=== PATIENT | male | born 1955 | race Caucasian/White ===

== ENCOUNTER → 2021-03-30 | Outpatient (CLI) | payer OTHER | LOC: LABNPT 06:33 | PROVIDERS: ATTEND Family Medicine | DX: R50.9 Fever, unspecified (principal); M79.10 Myalgia, unspecified site; Z20.822 Contact with and (suspected) exposure to COVID-19 | CPT/HCPCS: 87635 ==

== ENCOUNTER 2021-04-01 14:54 | Emergency (ER) | payer OTHER ==
[~2021-04-01] VITALS: Ht 177 cm; Wt 75.0 kg
[2021-04-01 15:19] LABS: BASOPHILS # (AUTO) 0.1 10^3/uL (0.0-0.1); BASOPHILS % (AUTO) 1 % (0-10); EOSINOPHILS # (AUTO) 0.2 10^3/uL (0.0-0.3); EOSINOPHILS % (AUTO) 2 % (0-10); HEMATOCRIT 40 % (40-54); HEMOGLOBIN 14.3 g/dL (13.3-17.7); LYMPHOCYTES # (AUTO) 2.2 10^3/uL (1.0-4.0); LYMPHOCYTES % (AUTO) 23 % (12-44); MEAN CORPUSCULAR HEMOGLOBIN 34 pg (25-34); MEAN CORPUSCULAR HGB CONC 36 g/dL (32-36); MEAN CORPUSCULAR VOLUME 94 fL (80-99); MONOCYTES # (AUTO) 0.8 10^3/uL (0.0-1.0); MONOCYTES % (AUTO) 8 % (0-12); NEUTROPHILS # (AUTO) 6.6 10^3/uL (1.8-7.8); NEUTROPHILS % (AUTO) 67 % (42-75); PLATELET COUNT 207 10^3/uL (130-400); WHITE BLOOD COUNT 9.9 10^3/uL (4.3-11.0)
--- NOTE | 2021-04-01 15:20 | ED Neurological Problem ---
General Stated Complaint: LOST VISION IN EYE Source: patient Exam Limitations: no limitations History of Present Illness Date Seen by Provider: Apr 01, 2021 Time Seen by Provider: 15:05 Initial Comments This is a 65-year-old male who presents to the ER with complaints of sudden onset right eye vision loss. States that he was mowing his yard when he began to see black spots that blurred together and became complete darkness. States that he has since had return of his vision with no lingering spots. No pain in his eye, blurred vision, or double vision. Spouse states this happened once earlier this week and his vision returned as well. At this time he has no complaints. Denies any recent illness, fever, chills, cough, shortness of b reath,chest pain, nausea/vomiting/diarrhea. Had COVID test Saturday, which was neg. Allergies and Home Medications Allergies Coded Allergies: No Known Drug Allergies (Unverified , 04/01/21) Patient Home Medication List Home Medication List Reviewed: Yes Review of Systems Review of Systems Constitutional: no symptoms reported Eyes: See HPI Ears, Nose, Mouth, Throat: no symptoms reported Respiratory: no symptoms reported Cardiovascular: no symptoms reported Gastrointestinal: no symptoms reported Genitourinary: no symptoms reported Musculoskeletal: no symptoms reported Skin: no symptoms reported Psychiatric/Neurological: No Symptoms Reported Endocrine: No Symptoms Reported Hematologic/Lymphatic: No Symptoms Reported Physical Exam Vital Signs Vital Signs - First Documented 04/01/21 14:58 Temp 36.7 Pulse 72 Resp 18 B/P (MAP) 115/72 (86) Pulse Ox 98 O2 Delivery Room Air Capillary Refill : Height, Weight, BMI Height: '" Weight: lbs. oz. 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, no motor/sensory deficits, alert, normal mood/affect, oriented x 3; No abnormal gait, No motor weakness, No sensory deficit Crainal Nerves: normal hearing, normal speech, PERRL; No facial asymmetry, No facial droop, No facial paresthesias, No facial weakness, No gaze palsy Coordination/Gait: normal finger to nose, normal gait Motor/Sensory: no motor deficit, no sensory deficit, no pronator drift Skin: normal color, warm/dry Stroke Onset of Symptoms Onset of Symptoms: Yes NIH Stroke Scale Assessment Select: Initial Level of Consciousness: 0=Alert (0), Level of Consciousness- Questions: 0=Answers both month/age (0), Gaze: Normal (0), Visual Hull: 0=No visual loss (0), Facial Movement (Facial Paresis): 0=Normal symmetrical mnt (0), Motor Function-Arms Right: 0=No drift (0), Motor Function-Arms Left: 0=No drift (0), Motor Function-Legs Right: 0=No drift (0), Motor Function- Legs Left: 0=No drift (0), Limb Ataxia: 0=Absent (0), Sensory: 0=Normal:no loss (0), Best Language: 0=No aphasia (0), Dysarthria: 0=Normal (0), Extinction & Inattention: 0=No abnormality (0), Total: 0 Progress/Results/Core Measures Results/Orders Lab Results Laboratory Tests Test 04/01/21 15:06 04/01/21 15:12 Range/Units White Blood Count 9.9 4.3-11.0 10^3/uL Red Blood Count 4.21 L 4.30-5.52 10^6/uL Hemoglobin 14.3 13.3-17.7 g/dL Hematocrit 40 40-54 % Mean Corpuscular Volume 94 80-99 fL Mean Corpuscular Hemoglobin 34 25-34 pg Mean Corpuscular Hemoglobin Concent 36 32-36 g/dL Red Cell Distribution Width 11.9 10.0-14.5 % Platelet Count 207 130-400 10^3/uL Mean Platelet Volume 11.0 9.0-12.2 fL Immature Granulocyte % (Auto) 1 % Neutrophils (%) (Auto) 67 42-75 % Lymphocytes (%) (Auto) 23 12-44 % Monocytes (%) (Auto) 8 0-12 % Eosinophils (%) (Auto) 2 0-10 % Basophils (%) (Auto) 1 0-10 % Neutrophils # (Auto) 6.6 1.8-7.8 10^3/uL Lymphocytes # (Auto) 2.2 1.0-4.0 10^3/uL Monocytes # (Auto) 0.8 0.0-1.0 10^3/uL Eosinophils # (Auto) 0.2 0.0-0.3 10^3/uL Basophils # (Auto) 0.1 0.0-0.1 10^3/uL Immature Granulocyte # (Auto) 0.1 0.0-0.1 10^3/uL Prothrombin Time 13.5 12.2-14.7 SEC INR Comment 1.0 0.8-1.4 Activated Partial Thromboplast Time 32 24-35 SEC D-Dimer 2.62 H 0.00-0.49 UG/ML Sodium Level 135 135-145 MMOL/L Potassium Level 4.1 3.6-5.0 MMOL/L Chloride Level 101 98-107 MMOL/L Carbon Dioxide Level 18 L 21-32 MMOL/L Anion Gap 16 H 5-14 MMOL/L Blood Urea Nitrogen 15 7-18 MG/DL Creatinine 0.80 0.60-1.30 MG/DL Estimat Glomerular Filtration Rate 96 BUN/Creatinine Ratio 19 Glucose Level 94 70-105 MG/DL Calcium Level 9.0 8.5-10.1 MG/DL Corrected Calcium 9.2 8.5-10.1 MG/DL Total Bilirubin 0.6 0.1-1.0 MG/DL Aspartate Amino Transf (AST/SGOT) 25 5-34 U/L Alanine Aminotransferase (ALT/SGPT) 26 0-55 U/L Alkaline Phosphatase 66 40-136 U/L Troponin I < 0.028 <0.028 NG/ML Total Protein 6.6 6.4-8.2 GM/DL Albumin 3.8 3.2-4.5 GM/DL Glucometer 99 70-110 MG/DL My Orders Orders - BEV TRAN PROGRAM CONSULTANT Cbc With Automated Diff (04/01/21 14:56) Protime With Inr (04/01/21 14:56) Partial Thromboplastin Time (04/01/21 14:56) Comprehensive Metabolic Panel (04/01/21 14:56) Fibrin Degradation Products (04/01/21 14:56) Troponin I (04/01/21 14:56) Chest 1 View, Ap/Pa Only (04/01/21 14:56) Ekg Tracing (04/01/21 14:56) Accucheck Stat ONCE (04/01/21 14:56) Ed Iv/Invasive Line Start (04/01/21 14:56) Ed Iv/Invasive Line Start (04/01/21 14:56) Vital Signs Stroke Patient Q15M (04/01/21 14:56) Ct Head Wo-R/O Stroke (04/01/21 14:56) O2 (04/01/21 14:56) Intake & Output 06,14,22 (04/01/21 14:56) Monitor-Rhythm Ecg Trace Only (04/01/21 14:56) Dysphagia Screening Tool (04/01/21 14:56) Post Thrombolytic Adminstratio (04/01/21 14:56) Tetracaine 0.5% Ophth Margarita Sdv (Tetracai (04/01/21 16:00) Ct Angio Head/Neck (04/01/21 16:29) Iohexol Injection (Omnipaque 350 Mg/Ml 1 (04/01/21 16:45) Received Contrast (Hold Metformin- Contr (04/01/21 16:45) Ns (Ivpb) (Sodium Chloride 0.9% Ivpb Bag (04/01/21 16:45) Aspirin Tablet (Aspirin Tablet) (04/01/21 16:45) Aspirin Tablet (Aspirin Tablet) (04/01/21 16:39) Medications Given in ED Vital Signs/I&O 04/01/21 04/01/21 14:58 17:56 Temp 36.7 Pulse 72 65 Resp 18 16 B/P (MAP) 115/72 (86) 123/77 Pulse Ox 98 98 O2 Delivery Room Air Room Air Progress Progress Note #1: Progress Note Patient examined and in no acute distress. Symptoms consistent with TIA. Initiated stroke workup. Has no complaints at this time. Has no focal or gross neurological deficits. Progress Note #2: Progress Note Labs reviewed and are unremarkable other than elevated D-dimer. CT head neg for acute pathology. Will give full strength ASA. Checked ocular pressures right19, left17.Discussed case with Dr. Lentz with ophthalmology, agrees that symptoms of transient vision loss is likely due to intermittent occlusion, recommended continued medical treatment. Progress Note #3: Time: 16:23 Progress Note Discussed case with [facility] neurology, recommended obtaining head/neck CTA and having patient transfer for further stroke workup pending results. If CTA neg for high grade stenosis or occlusion patient will still require additional workup including MRI. Progress Note #4: Progress Note CT angio head and neck negative for high-grade stenosis, occlusion, acute pathology. Discussed findings with patient they declined transfer at this time stating they would like to continue work-up outpatient. Called Dr. CHANG as this is his primary care provider and she is agreeable with continuing work-up outpatient. Patient is to call her office first thing Saturday. Reviewed discharge plan of care with patient and he is agreeable with plan. Diagnostic Imaging Diagonstic Imaging: Xray Plain Films/CT/US/NM/MRI: chest Comments [facility], [place] NAME: KAMILA PENA [facility] REC#: [id number] PT STATUS: REG ER : 1955 PHYSICIAN: BEV TRAN APRN ADMIT DATE: 04/01/21/ER Signed Date of Exam:04/01/21 CHEST 1 VIEW, AP/PA ONLY EXAMINATION: Chest 1 view. HISTORY: Stroke protocol. COMPARISON: None available. FINDINGS: The lungs are clear without edema or pneumonia. No pleural effusion or pneumothorax. Heart size is normal. IMPRESSION: Clear lungs. Dictated by: Dictated on workstation # [id number] Dict: 04/01/21 1530 Trans: 04/01/21 1631 [facility] [id number] Interpreted by: JANN WALDEN MD Electronically signed by: JANN WALDEN MD 04/01/21 163 Reviewed: Reviewed by Me Departure Impression Primary Impression: Transient visual loss, right eye Disposition: 01 HOME, SELF-CARE Condition: Improved Departure-Patient Inst. Decision time for Depature: 17:35 Patient Instructions: Transient Ischemic Attack (DC) Add. Discharge Instructions: Plan: 1. Take a full strength aspirin daily. 2. Call Dr. Chang's office on Saturday to schedule additional workup. 3. Return for any new, concerning, or worsening symptoms. Copy Copies To 1: KRIS CHANG STORMY D PROGRAM CONSULTANT Apr 01, 2021 15:20
[2021-04-01 15:31] LABS: ALBUMIN 3.8 GM/DL (3.2-4.5); CHLORIDE 101 MMOL/L (98-107); POTASSIUM 4.1 MMOL/L (3.6-5.0); SODIUM 135 MMOL/L (135-145)
[2021-04-01 15:33] LABS: GLUCOSE 94 MG/DL (70-105)
--- NOTE | 2021-04-01 15:33 | Diagnostic Imaging Report ---
EXAMINATION: Chest 1 view. HISTORY: Stroke protocol. COMPARISON: None available. FINDINGS: The lungs are clear without edema or pneumonia. No pleural effusion or pneumothorax. Heart size is normal. IMPRESSION: Clear lungs. Dictated by: Dictated on workstation # [id number]
[2021-04-01 15:34] LABS: TOTAL PROTEIN 6.6 GM/DL (6.4-8.2)
[2021-04-01 15:35] LABS: BILIRUBIN,TOTAL 0.6 MG/DL (0.1-1.0); CARBON DIOXIDE 18 MMOL/L (21-32); FIBRIN DEGRADATION PRODUCTS 2.62 UG/ML (0.00-0.49); PROTHROMBIN TIME PATIENT 13.5 SEC (12.2-14.7)
[2021-04-01 15:37] LABS: ALKALINE PHOSPHATASE 66 U/L (40-136); GFR ESTIMATED 96
[2021-04-01 15:38] LABS: BUN/CREATININE RATIO 19
[2021-04-01 15:40] LABS: ALANINE AMINOTRANSFERASE 26 U/L (0-55)
--- NOTE | 2021-04-01 15:41 | Diagnostic Imaging Report ---
PROCEDURE: CT head w/o r/o stroke. TECHNIQUE: Multiple contiguous axial images were obtained through the brain without the use of intravenous contrast. Auto Exposure Controls were utilized during the CT exam to meet ALARA standards for radiation dose reduction. INDICATION: Stroke and loss of vision in the right eye. COMPARISON: No prior study is available for comparison. FINDINGS: Ventricles and sulci are within normal limits. No sulcal effacement or midline shift is identified. There is an area of hyperdensity in the right frontal lobe cortex and subcortical white matter. This has the appearance of calcification and hemorrhage would be unlikely. No area of acute intracranial hemorrhage is identified. Cisterns are patent. The visualized paranasal sinuses are clear. IMPRESSION: There appears to be calcification in the right frontal lobe. No acute intracranial hemorrhage is detected. Dictated by: Dictated on workstation # [id number]
[2021-04-01] MEDS ORDERED: TETRACAINE 0.5% OPHTH SOLN 4 ML BTL (SINGLE DOSE ONLY) OU ONE (16:00)
[2021-04-01] MEDS ORDERED: ASPIRIN 325 MG (5 GR) TABLET ONE (16:39)
[2021-04-01] MEDS ORDERED: HOLD METFORMIN - RECEIVED CONTRAST 20 ML VIAL IV SCH (16:45)
[2021-04-01] MEDS ORDERED: IOHEXOL 350 MG/ML 100 ML (OMNIPAQUE 350) VIAL IV ONE (16:45)
[2021-04-01] MEDS ORDERED: NS 100 ML (IVPB) BAG IV ONE (16:45)
[2021-04-01] MEDS ORDERED: ASPIRIN 325 MG (5 GR) TABLET PO ONE (16:45)
--- NOTE | 2021-04-01 17:13 | Diagnostic Imaging Report ---
PROCEDURE: CT angiography of the head and CT angiography of the neck with and without contrast. TECHNIQUE: Contiguous noncontrast images were obtained from the skull base through the vertex. After intravenous contrast administration, helical CT angiography of the neck was performed. Source data was reformatted into 3D MIP projections. Delayed post contrast acquisition was also obtained. Auto Exposure Controls were utilized during the CT exam to meet ALARA standards for radiation dose reduction. INDICATION: STROKE, vision loss. COMPARISON: Imaging from the same date. FINDINGS: Age-appropriate volume loss. Calcifications and hyperdensity are identified within the right frontal lobe. No midline shift, herniation, hydrocephalus or extra-axial fluid collection. No definite intracranial hemorrhage, though evaluation is limited secondary to presence of intravenous contrast. No definite CT evidence of an acute ischemic infarction. The orbits are unremarkable. The paranasal sinuses are clear. The calvarium and extracalvarial soft tissues are unremarkable. Periventricular fat is symmetric. Muscles of mastication are unremarkable. The salivary glands are unremarkable. No significant adenopathy. The airway is patent. Epiglottis and aryepiglottic folds are unremarkable. Thyroid gland is unremarkable. No apical pneumothorax. A three-vessel aortic arch is present. The large arterial structures within the head and neck are unremarkable. Large dural venous sinuses appear patent. Scattered osseous degenerative changes without acute osseous abnormality. IMPRESSION: 1. Large arterial structures within the head and neck are unremarkable without evidence of obstruction, high-grade stenosis, dissection, aneurysm or pseudoaneurysm. 2. Persistent calcifications within the right frontal lobe without acute intracranial abnormality. Dictated by: Dictated on workstation # [id number]
[2021-04-01 17:56] VITALS: BP 123/77
--- OUTSIDE RECORDS SUMMARY | 2021-04-05 13:18 | XMS REPORT | CCD ---
Author Author Nayan Chang D.O. Organization [facility] Address [address] [place] [id number] Phone Care Team Providers Care Medical Claims Examiner Name Role Phone Kris Chang D.O., PP Unavailable CCM Unavailable Summary Purpose Interface Exchange Insurance Providers Payer name Policy type / Coverage type Covered libertarian ID Effective Begin Date Effective End Date ABS FOR [employer] Commercial Insurance [id number] Unknown Family History Family History data not found Social History Social History Element Codes Description Effective Dates Tobacco history SNOMED CT: 628316354 Nonsmoker 05/09/2011 Allergies, Adverse Reactions, Alerts Substance Reaction Codes Entered Date Inactivated Date Status * NO KNOWN ENVIRONMENTAL ALLERGIES Unknown 03/01/2010 N o Inactive Date Active _ Unknown 03/01/2010 No Inactive Date Active * NO KNOWN FOOD ALLERGIES Unknown 03/01/2010 No Inactiv e Date Active Problems Condition Codes Effective Dates Condition Status Bitten or stung by nonvenomous insect an d other nonvenomous arthropods, initial encounter ICD-10: W57.XXXA 03/08/2021 Active Fever, unspecified fever cause ICD-10: R50.9 ICD-9: 780.60 03/08/2021 Active Malaise ICD-10: R53.81 ICD-9: 780.79 03/08/2021 Active Multiple joint pain ICD-10: M25.50 ICD-9: 719.49 03/08/2021 Active Tick bite of left lower leg, initial encounter ICD-10: S80.862A ICD-9: 916.4 03/08/2021 Active Essential (primary) hypertension ICD-10: I10 ICD-9: 401.9 03/25/2014 Active PNEUMOCOCCAL VACCINE ICD-10: Z23 ICD-9: V03.82 04/06/2019 Active Encounter for general adult medical examination withou t abnormal findings ICD- 10: Z00.00 ICD-9: V70.9 03/31/2018 Active Encounter for general adult medical examination withou t abnormal findings ICD- 10: Z00.00 ICD-9: V70.0 03/25/2014 Active HYPERTENSION ICD-9: 401.9 03/25/2014 Active ROUTINE MEDICAL EXAM ICD-9: V70.0 03/25/2014 Active Hypertension Unknown 05/09/2011 Active Medications Medication Codes Instructions Start Date Stop Date Status Fill Instructions doxycycline hyclate 100 mg capsule RxNorm: 1967210 1 Cap jalen(s) Oral two times a day 03/14/2021 03/20/2021 Active doxycycline hyclate 100 mg capsule RxNorm: 5532493 1 Cap jalen(s) Oral two times a day 03/13/2021 03/13/2021 Inactive doxycycline hyclate 100 mg capsule RxNorm: 1693163 1 Cap jalen(s) Oral two times a day 03/13/2021 03/13/2021 Inactive lisinopril 40 mg tablet RxNorm: 860282 TAKE 1 TABLET BY MOUTH ONCE DAILY Tablet(s) Oral 01/27/2021 04/26/2021 Active lisinopril 40 mg tablet RxNorm: 332989 TAKE 1 TABLET BY MOUTH ONCE DAILY Tablet(s) Oral 04/07/2020 04/07/2020 Inactive lisinopril 40 mg tablet RxNorm: 967185 TAKE 1 TABLET BY MOUTH O NCE DAILY 10/23/2019 04/06/2020 Inactive lisinopril 40 mg tablet RxNorm: 706788 1 Tablet(s) PO QD 04/06/2019 0 10/02/2019 Inactive lisinopril 40 mg tablet RxNorm: 662910 1 Tablet(s) PO QD 10/30/2018 0 10/22/2019 Inactive lisinopril 40 mg tablet RxNorm: 018455 1 Tablet(s) PO QD 03/31/2018 0 09/25/2018 Inactive lisinopril 40 mg tablet RxNorm: 191550 1 Tablet(s) PO QD 03/27/2018 0 03/30/2018 Inactive lisinopril 40 mg tablet RxNorm: 060459 1 Tablet(s) PO QD 04/01/2017 0 03/31/2017 Inactive lisinopril 40 mg tablet RxNorm: 394115 1 Tablet(s) PO QD 04/01/2017 0 03/27/2018 Inactive lisinopril 40 mg tablet RxNorm: 869685 1 Tablet(s) PO QD 03/08/2016 0 04/01/2017 Inactive lisinopril 20 mg tablet RxNorm: 014276 Tablet(s) TAKE O NE TABLET BY MOUTH TWICE DAILY, NEED APPT AND LABS 02/16/2016 03/30/2018 Inactive lisinopril 20 mg tablet RxNorm: 319185 TAKE ONE TABLET BY MOUTH TWICE DAILY, NEED APPT AND LABS 10/17/2015 12/15/2015 Inactive lisinopril 40 mg tablet RxNorm: 956757 1 Tablet(s) PO QD 04/25/2015 0 02/16/2016 Inactive lisinopril 20 mg tablet RxNorm: 059436 1 Tablet(s) PO BID -need appt and labs 03/21/2015 10/17/2015 Inactive [AttnRPh: Saving yvrose ly/adjudicate RxGRP:SG20 RxBIN:[id number] RxPCN: ID#:[id number]] lisinopril 20 mg tablet RxNorm: 024949 1 Tablet(s) PO BID 03/29/2014 03/21/2015 Inactive [AttnRPh: Saving apply/adjudicate RxGRP: SG20 RxBIN:[id number] RxPCN: ID#:[id number]] lisinopril 20 mg tablet RxNorm: 755314 1 Tablet(s) PO BID 03/09/2014 03/22/2014 Inactive [AttnRPh: Saving apply/adjudicate RxGRP: SG20 RxBIN:[id number] RxPCN: ID#:[id number]] lisinopril 20 mg tablet RxNorm: 198209 Tablet(s) PO LEANNA E ONE TABLET BY MOUTH TWICE DAILY 06/05/2013 03/08/2014 Inactive lisinopril 20 mg tablet RxNorm: 070841 1 Tablet(s) PO BID 06/02/2012 05/27/2013 Inactive Due for labs and yearly check-up before further refills lisinopril 20 mg tablet RxNorm: 348625 1 Tablet(s) PO BID 05/09/2011 08/06/2011 Inactive Due for labs and yearly check-up before further refills lisinopril 20 mg Tab RxNorm: 439924 1 Tablet(s) PO BID 04/11/201101/2011 Inactive Due for labs and yearly check-up before further refills lisinopril 20 mg Tab RxNorm: 555801 1 Tablet(s) PO BID Due for yearly check-up in January 2011 01/08/2011 05/09/2011 Inactive Lisinopril 20 mg Tab RxNorm: 070138 1 Tablet(s) PO QD 05/26/201003/2011 Inactive Lisinopril 20 mg Tab RxNorm: 330499 1 Tablet(s) PO QD 05/04/201005/04 Inactive Lisinopril 20 mg Tab RxNorm: 785781 1 Tablet(s) PO QD 03/01/201004/03 Inactive Multivitamin & Mineral Formula Tab RxNorm: 1 Tablet(s) PO QD 03/01 Active Aspirin 81 mg Tab RxNorm: 451864 1 Tablet(s) PO QD 03/01/2010 Active Medication Administered No Medication Administered data Immunizations Vaccine Codes Date Status Influenza CVX: 141 07/19/2020 Pneumococcal CVX: 33 04/07/2020 Complete Influenza HD CVX: 135 10/17/2019 Pneumococcal CVX: 133 04/06/2019 Complete Results Observation Observation Code Item Item Code Result Date S [facility] Location COMPLETE BLOOD COUNT [id number] WBC 9.6 10e9/L 04/22/20 20 Unknown COMPLETE BLOOD COUNT [id number] RBC 4.64 10e12/L 2019 Unknown COMPLETE BLOOD COUNT [id number] HEMOGLOBIN 15.9 g/dL 04/22/20 20 Unknown COMPLETE BLOOD COUNT [id number] HEMATOCRIT 44.0 % 04/22/20 20 Unknown COMPLETE BLOOD COUNT [id number] MCV 94.8 fL 0 Unknown COMPLETE BLOOD COUNT [id number] MCH 34.3 pg 0 Unknown COMPLETE BLOOD COUNT [id number] MCHC 36.1 g/dL 0 Unknown COMPLETE BLOOD COUNT [id number] PLATELET COUNT 179 10e9/L Unknown COMPLETE BLOOD COUNT [id number] Mean Plt Volume 12.2 fL Unknown COMPLETE BLOOD COUNT 3035016 Neut Auto 69.2 % 0 Unknown COMPLETE BLOOD COUNT [id number] Lymph Auto 20.7 % 04/22/20 20 Unknown COMPLETE BLOOD COUNT [id number] Marion Auto 8.7 % 0 Unknown COMPLETE BLOOD COUNT [id number] RDW 12.6 % 0 Unknown COMPLETE BLOOD COUNT 1544147 Eos Auto 1.1 % 0 Unknown COMPLETE BLOOD COUNT 0630445 Baso Auto 0.3 % 0 Unknown COMPLETE BLOOD COUNT [id number] Neutrophil Abs 6.64 10e9/L Unknown COMPLETE BLOOD COUNT [id number] Lymphocyte Abs 1.99 10e9/L Unknown COMPLETE BLOOD COUNT [id number] Monocyte Abs 0.84 10e9/L 04/03 Unknown COMPLETE BLOOD COUNT [id number] Eosinophil Abs 0.11 10e9/L Unknown COMPLETE BLOOD COUNT [id number] RDW-SD 42.5 fL 0 Unknown COMPLETE BLOOD COUNT [id number] Basophil Abs 0.03 10e9/L 04/03 Unknown Procedures Procedure Codes Date ROUTINE VENIPUNCTURE CPT-4: 13156 04/22/2020 COMPLETE CBC W/AUTO DIFF WBC CPT-4: 31433 04/22/2020 PNEUMOCOCCAL VACC 23 RENITA IM CPT-4: 47895 04/07/2020 IMMUNIZATION ADMIN CPT-4: 85973 04/07/2020 PNEUMOCOCCAL VACC 13 RENITA IM CPT-4: 62064 04/06/2019 IMMUNIZATION ADMIN CPT-4: 03302 04/06/2019 Vital Signs Date Vital 03/08/2021 Blood Pressure 1: 127/82 Code: 8480-6 BMI: 24.1 Code: 87852-2 Heart Rate 1: 70 bpm Height: 5'11" Code: 8302-2 Respiratory Rate: 16 bpm SpO2: 97% Temperature: 36.3 (C) / 97.3 (F) Weight: 173 lbs Code: 80625-1 04/22/2020 Blood Pressure 1: 139/82 Code: 8480-6 Heart Rate 1: 63 bpm SpO2: 99% 04/07/2020 Blood Pressure 1: 140/85 Code: 8480-6 Heart Rate 1: 75 bpm Respiratory Rate: 20 bpm SpO2: 98% Temperature: 36.7 (C) / 98.0 (F) We ight: 179 lbs Code: 94788-3 04/06/2019 Blood Pressure 1: 136/82 Code: 8480-6 Heart Rate 1: 62 bpm SpO2: 96% Temperature: 36.3 (C) / 97.4 (F) Weight: 181 lbs Code: 43571-8 03/31/2018 Blood Pressure 1: 116/64 Code: 8480-6 BMI: 26.0 Code: 67305-4 Heart Rate 1: 62 bpm Height: 5'10" Code: 8302-2 Respiratory Rate: 22 bpm SpO2: 96% Temperature: 36.8 (C) / 98.2 (F) Weight: 181 lbs Code: 09027-5 03/08/2016 Blood Pressure 1: 142/84 Code: 8480-6 BMI: 26.5 Code: 96567-4 Heart Rate 1: 54 bpm Height: 5'10" Code: 8302-2 Respiratory Rate: 22 bpm SpO2: 97% Temperature: 36.7 (C) / 98.1 (F) Weight: 185 lbs Code: 85565-9 04/25/2015 Blood Pressure 1: 128/70 Code: 8480-6 BMI: 26.0 Code: 82646-9 Heart Rate 1: 78 bpm Height: 5'10" Code: 8302-2 Respiratory Rate: 22 bpm Temperat ure: 36.4 (C) / 97.6 (F) Weight: 181 lbs Code: 36761-1 03/25/2014 Blood Pressure 1: 120/78 Code: 8480-6 BMI: 26.1 Code: 08338-8 Heart Rate 1: 64 bpm Height: 5'10" Code: 8302-2 Respiratory Rate: 20 bpm Temperat ure: 36.6 (C) / 97.9 (F) Weight: 182 lbs Code: 36901-2 06/05/2012 Blood Pressure 1: 116/78 Code: 8480-6 BMI: 25.5 Code: 45702-0 Heart Rate 1: 60 bpm Height: 5'10" Code: 8302-2 Respiratory Rate: 20 bpm Temperat ure: 36.9 (C) / 98.4 (F) Weight: 178 lbs Code: 59381-5 05/09/2011 Blood Pressure 1: 120/70 Code: 8480-6 BMI: 25.8 Code: 87834-3 Heart Rate 1: 54 bpm Height: 5'10" Code: 8302-2 Temperature: 36.3 (C) / 97.3 (F) Weight: 180 lbs Code: 05390-9 05/26/2010 Blood Pressure 1: 135/88 Code: 8480-6 Bl ood Pressure 2: 135/80 Code: 8480-6 03/21/2010 Blood Pressure 1: 140/86 Code: 8480-6 He art Rate 1: 60 bpm 03/01/2010 Blood Pressure 1: 144/94 Code: 8480-6 Heart Rate 1: 60 bpm Temperature: 37.1 (C) / 98.8 (F) Weight: 176 lbs Code: 43027-7 Functional Status No Functional Status data Reason For Visit Reason For Visit Effective Dates Notes myalgias 03/08/2021 well man exam (65+ years) 04/07/2020 well man exam (65+ years) 04/06/2019 well man exam (40-65 years) 03/31/2018 AnnualLast C olonoscopy over 10 years ago follow up 03/08/2016 refill of Lisinopril well man exam (40-65 years) 04/25/2015 Wellness- ne eds labs well man exam (40-65 years) 03/25/2014 Refill lisin opril high blood pressure 06/05/2012 needing refill of li sinopril follow up 05/09/2011 Medication review, n eeds updated lab and new prescriptions. blood pressure check 03/21/2010 high blood pressure 03/01/2010 was having some mild pressure in head Encounters Encounter Performer Location Codes Date (23027) OFFICE/OUTPATIENT VISIT EST Diagnosis: Multiple joint pain[ICD10: M25.50] Diagnosis: Malaise[ICD10: R53.81] Diagnosis: Bitten or stung by nonvenomous insect and other nonvenomous arthropods, initial encounter[ICD10: W57.XXXA] Diagnosis: Tick bite of left lower leg, initial encounter[ICD10: S80.862A] Diagnosis: Fever, unspecified fever cause[ICD10: R50.9] Olivia LOO CPT-4: 33213 03/08/2021 ([id number]) NURSE/OUTPATIENT VISIT EST Diagnosis: Essential (primary) hypertension[ICD10: I10] [facility] CPT-4: 69503 04/22/2020 ([id number]) PER PM REEVAL EST PAT 65+ YR Diagnosis: PNEUMOCOCCAL VACCINE[ICD10: Z23] Diagnosis: Encounter for general adult medical examination without abnormal findings[ICD10: Z00.00] Diagnosis: Essential (primary) hypertension[ICD10: I10] Skylar CHANG DO [facility] CPT-4: 14628 04/07/2020 ([id number]) PER PM REEVAL EST PAT 65+ YR Diagnosis: Encounter for general adult medical examination without abnormal findings[ICD10: Z00.00] Diagnosis: PNEUMOCOCCAL VACCINE[ICD10: Z23] Diagnosis: Essential (primary) hypertension[ICD10: I10] Skylar CHANG DO [facility] CPT-4: 60593 04/06/2019 ([id number]) PREV VISIT EST AGE 40-64 Diagnosis: Encounter for general adult medical examination without abnormal findings[ICD10: Z00.00] Diagnosis: Essential (primary) hypertension[ICD10: I10] Skylar CHANG DO [facility] CPT-4: 48252 03/31/2018 ([id number]) PREV VISIT EST AGE 40-64 Diagnosis: Encounter for general adult medical examination without abnormal findings[ICD10: Z00.00] Diagnosis: Essential (primary) hypertension[ICD10: I10] Yara CHANG DO [facility] CPT-4: 77409 03/08/2016 ([id number]) PREV VISIT EST AGE 40-64 Diagnosis: ROUTINE MEDICAL EXAM[ICD9: V70.0] Diagnosis: HYPERTENSION[ICD9: 401.9] Yara MIMSR [facility] CPT-4: 88817 04/25/2015 ([id number]) PREV VISIT EST AGE 40-64 Diagnosis: ROUTINE MEDICAL EXAM[ICD9: V70.0] Diagnosis: HYPERTENSION[ICD9: 401.9] Kris MIMSR [facility] CPT-4: 23960 03/25/2014 ([id number]) PREV VISIT EST AGE 40-64 Diagnosis: ROUTINE MEDICAL EXAM[ICD9: V70.0] Diagnosis: HYPERTENSION[ICD9: 401.9] Kris RODRIGUEZ DO [facility] CPT-4: 62792 06/05/2012 PREV VISIT EST AGE 40-64 Diagnosis: ROUTINE MEDICAL EXAM[ICD9: V70.0] Diagnosis: HYPERTENSION[ICD9: 401.9] Kris RODRIGUEZ DO [facility] CPT-4: 81603 05/09/2011 ([id number]) OFFICE/OUTPATIENT VISIT, EST Kris CHANG DO [facility] CPT-4: 22725 03/01/2010 Plan of Care Planned Activity Notes Codes Status Date Visit Plan: Will get tick panel, CBC, CM P, CRP, and RF. Take ibuprofen for pain/fever. Will call with results. 03/08/2021 Visit NOS Plan: Plan Notes: Will get tick pa alexander, CBC, CMP,... 03/08/2021 Appointment: Olivia Toure WPtel: [phone] [facility], [place] ACUTE ILLNESS 03/08/2021 Patient Education: Patient Medication Summary Completed 03/08/2021 Appointment: Bernardo Kris PaulLarissa WPtel: [phone] [facility] NURSE SERVICES 04/22/2020 Visit Diagnosis Plan: Essential (primary) hypertension Discussion: rtc 2 weeks for bp check. fasting labs ordered. ICD-9 : 401.9 ICD-10 : I10 04/07/2020 Visit Diagnosis Plan: Encounter for [facility] adult medical examination without abnormal findings Discussion: need updated labs. will orde r for him to get done at [facility] tomorrow. sees dr. alvarado for prostate exams annually. pneumovax given in office today and instructed to rtc in fall for flu shot. defers tetanus shot. patient defers colonoscopy. i educated patient for several minutes about the impact of colon cancer and the risks of colectomy vs . educated him that colon cancer is very preventative if caught early and colonoscopy is the most accurate test. patient verbalized understanding and stated "i'll continue to think about it". i educated him that colon cancer typically doesn't show signs until it's advanced so screening is cunningham. ICD-9 : V70.0 ICD-10 : Z00.00 04/07/2020 [facility] [facility] 04/07/2020 Patient Education: lisinopril- Opt[employer] Coupon [id number] [email or web address] Completed 04/07/2020 Patient Education: High Blood Pressure Co mpleted 04/07/2020 Visit Diagnosis Plan: Encounter for [facility] adult medical examination without abnormal findings Discussion: will obtain recent blood wor k from [facility] and order additional tests as needed. patient sees dr. alvarado annually for prostate checks. defers colonoscopy. educated patient on importance of having colonoscopy screening to find colon cancers early. educated patient that he's not too young to develop cancer and he needs to have an updated screening. patient verbalized understanding but continued to decline. educated patient then on having cologuard screening and discussed the testing process and importance. patient still declined stating he'd think about it. patient did receive pneumonia vac cine and instructed him to rtc 1 year for booster. instructed him to have shingles vaccine at local pharmacy. ICD-9 : V70.9 ICD-10 : Z00.00 04/06/2019 Visit Diagnosis Plan: Essential (primary) hypertension Discussion: stable. continue current dose. ICD-9 : 401.9 ICD-10 : I10 04/06/2019 [facility]ment[facility] [address] [facility] [facility] Well Visit 04/06/2019 Patient Education: lisinopril- [employer] Coupon [id number] Completed 04/06/2019 Patient Education: High Blood Pressure Co mpleted 04/06/2019 Visit Diagnosis Plan: Essential (primary) hypertension Discussion: stable. continue current medications. fasting labs to be completed this week. ICD-9 : 401.9 ICD-10 : I10 03/31/2018 Visit Diagnosis Plan: Encounter for [facility] adult medical examination without abnormal findings Discussion: [facility] to have fasting later this week. instructed patient to have pneumonia vaccine at age 63 along with influenza and shingrix. patient deferred colonoscopy despite education given to patient regarding risks including . patient verbalized understanding of risks and benefits of having procedure done but continues to decline. patient has psa and prostate checked by dr. alvarado annually. ICD-9 : V70.9 ICD-10 : Z00.00 03/31/2018 Appointment: Skylar Ruth [address] [facility] Annual Well Visit 03/31/2018 Patient Education: Patient Medication Summary Completed 03/31/2018 Appointment: Yara Payne WPtel: [address] [place], [place] [phone] FOLLOW UP 03/08/2016 Patient Education: Patient Medication Summary Completed 03/08/2016 Patient Education: [facility] - Saving [employer]j - Lisinopril - 18-64 - Dynamic Portal ID Completed 03/08/2016 Visit Plan: Needs Screening Colonscopy- discussed the risks and refuses to schedule Refill Lisinopril 40 mg po daily Completed PSA, routine labs and clinical prostate exam in January- Dr. Alvarado 04/25/2015 Appointment: Yara Payne WPtel: [address] [place], [place] [phone] 04/22/2015 lm 04/25 Left message-lb Annual Well Visit 5 Patient Education: Patient Medication Summary Completed 04/25/2015 Patient Education: [facility] - Saving Auto[employer]j - Lisinopril - 18-64 - Dynamic Portal ID Completed 04/25/2015 Visit Plan: Cont current meds Check fast ing lab including PSA Needs colonoscopy--pt states he will think about it 03/25/2014 Appointment: Kris Chang WPtel: [address] [place], [place] [phone] 03/24 Annual Well Visit 03/25/2014 Patient Education: Patient Medication Summary Completed 03/25/2014 Visit Plan: Refuses prostate exam and co lonoscopy Continue lisinopril Check fasting lab 06/05/2012 Appointment: Kris Chang WPtel: [address] [place], [place] [phone] 06/04 vm ACUTE ILLNESS 06/05/2012 Patient Education: Patient Medication Summary Completed 06/05/2012 Visit Plan: Proceed with fasting lab Ref uses prostate exam Continue lisinopril at current dose 05/09/2011 Appointment: Kris Chang WPtel: [address] [place] [address] FOLLOW UP 05/09/2011 Patient Education: Patient Medication Summary Completed 05/09/2011 Appointment: Kris Chang WPtel: [address] [place] [address] FOLLOW UP 05/08/2011 Appointment: Kris Chang WPtel: [address] [place] [address] BP CHECK 05/26/2010 Patient Education: Patient Medication Summary Completed 05/26/2010 Appointment: Kris Chang WPtel: [address] [place] [address] FOLLOW UP 03/21/2010 Patient Education: Patient Medication Summary Completed 03/21/2010 Visit Plan: Check fasting lab and UA Sta rt Lisinopril Pt refuses prostate check and colonoscopy 1mo BP check 03/01/2010 Appointment: Kris Changtel: [address] [place] [address] ACUTE ILLNESS 03/01/2010 Patient Education: Patient Medication Summary Completed 03/01/2010 Instructions Comment . Will get tick panel, CBC, CMP, CRP, an d RF. Take ibuprofen for pain/fever. Will call with results. . Needs Screening Colonscopy- discussed the risks and refuses to schedule Refill Lisinopril 40 mg po daily Completed PSA, routine labs and clinical prostate exam in January- Dr. Alvarado . Cont current meds Check fasting lab including PSA Needs colonoscopy--pt states he will think about it . Refuses prostate exam and colonoscopy Continue lisinopril Check fasting lab . Proceed with fasting lab Refuses prostate exam Continue lisinopril at current dose . Check fasting lab and UA Start Lisinopril Pt refuses prostate check and colonoscopy 1mo BP check Medical Equipment No Medical Equipment data Health Concerns Section Health Concerns data not found Goals Section Goals data not found Interventions Section Interventions data not found Health Status Evaluations/Outcomes Section Health Status Evaluations/Outcomes data not found Advance Directives No Advance Directive data
--- OUTSIDE RECORDS SUMMARY | 2021-04-05 13:18 | XMS REPORT | CCD ---
Author Author Nayan Chang D.O. Organization [facility] Address [address] [place] [id number] Phone Care Team Providers Care Licensed Funeral Director Name Role Phone Kris Chang D.O., PP Unavailable CCM Unavailable Summary Purpose Interface Exchange Insurance Providers Payer name Policy type / Coverage type Covered green party ID Effective Begin Date Effective End Date ABS FOR 2NDNATURE Commercial Insurance [id number] Unknown Family History Family History data not found Social History Social History Element Codes Description Effective Dates Tobacco history SNOMED CT: 301540501 Nonsmoker 05/09/2011 Allergies, Adverse Reactions, Alerts Substance [...] Start Date Stop Date Status Fill Instructions lisinopril 40 mg tablet RxNorm: 022633 TAKE 1 TABLET BY MOUTH ONCE DAILY Tablet(s) Oral 01/27/2021 04/26/2021 Active lisinopril 40 mg tablet RxNorm: 667683 TAKE 1 TABLET BY MOUTH ONCE DAILY Tablet(s) Oral 04/07/2020 04/07/2020 Inactive lisinopril 40 mg tablet RxNorm: 806052 TAKE 1 TABLET BY MOUTH O NCE DAILY 10/23/2019 04/06/2020 Inactive lisinopril 40 mg tablet RxNorm: 639918 1 Tablet(s) PO QD 04/06/2019 0 10/02/2019 Inactive lisinopril 40 mg tablet RxNorm: 608146 1 Tablet(s) PO QD 10/30/2018 0 10/22/2019 Inactive lisinopril 40 mg tablet RxNorm: 005029 1 Tablet(s) PO QD 03/31/2018 0 09/25/2018 Inactive lisinopril 40 mg tablet RxNorm: 693779 1 Tablet(s) PO QD 03/27/2018 0 03/30/2018 Inactive lisinopril 40 mg tablet RxNorm: 264267 1 Tablet(s) PO QD 04/01/2017 0 03/31/2017 Inactive lisinopril 40 mg tablet RxNorm: 299448 1 Tablet(s) PO QD 04/01/2017 0 03/27/2018 Inactive lisinopril 40 mg tablet RxNorm: 007702 1 Tablet(s) PO QD 03/08/2016 0 04/01/2017 Inactive lisinopril 20 mg tablet RxNorm: 762679 Tablet(s) TAKE O NE TABLET BY MOUTH TWICE DAILY, NEED APPT AND LABS 02/16/2016 03/30/2018 Inactive lisinopril 20 mg tablet RxNorm: 928032 TAKE ONE TABLET BY MOUTH TWICE DAILY, NEED APPT AND LABS 10/17/2015 12/15/2015 Inactive lisinopril 40 mg tablet RxNorm: 870634 1 Tablet(s) PO QD 04/25/2015 0 02/16/2016 Inactive lisinopril 20 mg tablet RxNorm: 715091 1 Tablet(s) PO BID -need appt and labs 03/21/2015 10/17/2015 Inactive [AttnRPh: Saving yvrose ly/adjudicate RxGRP:SG20 RxBIN:[id number] RxPCN:HT ID#:[id number]] lisinopril 20 mg tablet RxNorm: 716416 1 Tablet(s) PO BID 03/29/2014 03/21/2015 Inactive [AttnRPh: Saving apply/adjudicate RxGRP: SG20 RxBIN:[id number] RxPCN:HT ID#:[id number]] lisinopril 20 mg tablet RxNorm: 850241 1 Tablet(s) PO BID 03/09/2014 03/22/2014 Inactive [AttnRPh: Saving apply/adjudicate RxGRP: SG20 RxBIN:[id number] RxPCN:HT ID#:[id number]] lisinopril 20 mg tablet RxNorm: 323000 Tablet(s) PO LEANNA E ONE TABLET BY MOUTH TWICE DAILY 06/05/2013 03/08/2014 Inactive lisinopril 20 mg tablet RxNorm: 497544 1 Tablet(s) PO BID 06/02/2012 05/27/2013 Inactive Due for labs and yearly check-up before further refills lisinopril 20 mg tablet RxNorm: 136214 1 Tablet(s) PO BID 05/09/2011 08/06/2011 Inactive Due for labs and yearly check-up before further refills lisinopril 20 mg Tab RxNorm: 034239 1 Tablet(s) PO BID 04/11/201101/2011 Inactive Due for labs and yearly check-up before further refills lisinopril 20 mg Tab RxNorm: 113606 1 Tablet(s) PO BID Due for yearly check-up in January 2011 01/08/2011 05/09/2011 Inactive Lisinopril 20 mg Tab RxNorm: 446589 1 Tablet(s) PO QD 05/26/201003/2011 Inactive Lisinopril 20 mg Tab RxNorm: 238509 1 Tablet(s) PO QD 05/04/201005/04 Inactive Lisinopril 20 mg Tab RxNorm: 042461 1 Tablet(s) PO QD 03/01/201004/03 Inactive Multivitamin & Mineral Formula Tab RxNorm: 1 Tablet(s) PO QD 03/01 Active Aspirin 81 mg Tab RxNorm: 196266 1 Tablet(s) PO QD 03/01/2010 Active Medication Administered No Medication Administered data Immunizations Vaccine Codes Date Status Influenza CVX: 141 07/19/2020 Pneumococcal CVX: 33 04/07/2020 Complete Influenza HD CVX: 135 10/17/2019 Pneumococcal CVX: 133 04/06/2019 Complete Results Observation Observation Code Item Item Code Result Date S vice Location COMPLETE BLOOD COUNT [id number] WBC 9.6 10e9/L 04/22/20 20 Unknown COMPLETE BLOOD COUNT [id number] RBC 4.64 10e12/L 2019 Unknown COMPLETE BLOOD COUNT [id number] HEMOGLOBIN 15.9 g/dL 04/22/20 20 Unknown COMPLETE BLOOD COUNT [id number] HEMATOCRIT 44.0 % 04/22/20 20 Unknown COMPLETE BLOOD COUNT [id number] MCV 94.8 fL 0 Unknown COMPLETE BLOOD COUNT [id number] MCH 34.3 pg 0 Unknown COMPLETE BLOOD COUNT [id number] MCHC 36.1 g/dL 0 Unknown COMPLETE BLOOD COUNT [id number] PLATELET COUNT 179 10e9/L Unknown COMPLETE BLOOD COUNT [id number] Mean Plt Volume 12.2 fL Unknown COMPLETE BLOOD COUNT [id number] Neut Auto 69.2 % 0 Unknown COMPLETE BLOOD COUNT [id number] Lymph Auto 20.7 % 04/22/20 20 Unknown COMPLETE BLOOD COUNT [id number] [place] Auto 8.7 % 0 Unknown COMPLETE BLOOD COUNT [id number] RDW 12.6 % 0 Unknown COMPLETE BLOOD COUNT [id number] Eos Auto 1.1 % 0 Unknown COMPLETE BLOOD COUNT [id number] Baso Auto 0.3 % 0 Unknown COMPLETE BLOOD COUNT [id number] Neutrophil Abs 6.64 10e9/L Unknown COMPLETE BLOOD COUNT [id number] Lymphocyte Abs 1.99 10e9/L Unknown COMPLETE BLOOD COUNT [id number] Monocyte Abs 0.84 10e9/L 04/03 Unknown COMPLETE BLOOD COUNT [id number] Eosinophil Abs 0.11 10e9/L Unknown COMPLETE BLOOD COUNT [id number] RDW-SD 42.5 fL 0 Unknown COMPLETE BLOOD COUNT [id number] Basophil Abs 0.03 10e9/L 04/03 Unknown Procedures Procedure Codes Date ROUTINE VENIPUNCTURE CPT-4: 30451 04/22/2020 COMPLETE CBC W/AUTO DIFF WBC CPT-4: 96180 04/22/2020 PNEUMOCOCCAL VACC 23 RENITA IM CPT-4: 31472 04/07/2020 IMMUNIZATION ADMIN CPT-4: 77459 04/07/2020 PNEUMOCOCCAL VACC 13 RENITA IM CPT-4: 12939 04/06/2019 IMMUNIZATION ADMIN CPT-4: 38109 04/06/2019 Vital Signs Date Vital 03/08/2021 Blood Pressure 1: 127/82 Code: 8480-6 BMI: 24.1 Code: 61243-1 Heart Rate 1: 70 bpm Height: 5'11" Code: 8302-2 Respiratory Rate: 16 bpm SpO2: 97% Temperature: 36.3 (C) / 97.3 (F) Weight: 173 lbs Code: 90325-3 04/22/2020 Blood Pressure 1: 139/82 Code: 8480-6 Heart Rate 1: 63 bpm SpO2: 99% 04/07/2020 Blood Pressure 1: 140/85 Code: 8480-6 Heart Rate 1: 75 bpm Respiratory Rate: 20 bpm SpO2: 98% Temperature: 36.7 (C) / 98.0 (F) We ight: 179 lbs Code: 54175-2 04/06/2019 Blood Pressure 1: 136/82 Code: 8480-6 Heart Rate 1: 62 bpm SpO2: 96% Temperature: 36.3 (C) / 97.4 (F) Weight: 181 lbs Code: 01385-9 03/31/2018 Blood Pressure 1: 116/64 Code: 8480-6 BMI: 26.0 Code: 53434-6 Heart Rate 1: 62 bpm Height: 5'10" Code: 8302-2 Respiratory Rate: 22 bpm SpO2: 96% Temperature: 36.8 (C) / 98.2 (F) Weight: 181 lbs Code: 58056-1 03/08/2016 Blood Pressure 1: 142/84 Code: 8480-6 BMI: 26.5 Code: 44950-8 Heart Rate 1: 54 bpm Height: 5'10" Code: 8302-2 Respiratory Rate: 22 bpm SpO2: 97% Temperature: 36.7 (C) / 98.1 (F) Weight: 185 lbs Code: 83401-9 04/25/2015 Blood Pressure 1: 128/70 Code: 8480-6 BMI: 26.0 Code: 29112-1 Heart Rate 1: 78 bpm Height: 5'10" Code: 8302-2 Respiratory Rate: 22 bpm Temperat ure: 36.4 (C) / 97.6 (F) Weight: 181 lbs Code: 17068-2 03/25/2014 Blood Pressure 1: 120/78 Code: 8480-6 BMI: 26.1 Code: 94645-0 Heart Rate 1: 64 bpm Height: 5'10" Code: 8302-2 Respiratory Rate: 20 bpm Temperat ure: 36.6 (C) / 97.9 (F) Weight: 182 lbs Code: 06120-2 06/05/2012 Blood Pressure 1: 116/78 Code: 8480-6 BMI: 25.5 Code: 96948-1 Heart Rate 1: 60 bpm Height: 5'10" Code: 8302-2 Respiratory Rate: 20 bpm Temperat ure: 36.9 (C) / 98.4 (F) Weight: 178 lbs Code: 82748-8 05/09/2011 Blood Pressure 1: 120/70 Code: 8480-6 BMI: 25.8 Code: 76283-2 Heart Rate 1: 54 bpm Height: 5'10" Code: 8302-2 Temperature: 36.3 (C) / 97.3 (F) Weight: 180 lbs Code: 03613-4 05/26/2010 Blood Pressure 1: 135/88 Code: 8480-6 Bl ood Pressure 2: 135/80 Code: 8480-6 03/21/2010 Blood Pressure 1: 140/86 Code: 8480-6 He art Rate 1: 60 bpm 03/01/2010 Blood Pressure 1: 144/94 Code: 8480-6 Heart Rate 1: 60 bpm Temperature: 37.1 (C) / 98.8 (F) Weight: 176 lbs Code: 67340-7 Functional Status No Functional Status data Reason [...] head Encounters Encounter Performer Location Codes Date (90132) OFFICE/OUTPATIENT VISIT EST Diagnosis: Multiple joint pain[ICD10: M25.50] Diagnosis: Malaise[ICD10: R53.81] Diagnosis: Bitten or stung by nonvenomous insect and other nonvenomous arthropods, initial encounter[ICD10: W57.XXXA] Diagnosis: Tick bite of left lower leg, initial encounter[ICD10: S80.862A] Diagnosis: Fever, unspecified fever cause[ICD10: R50.9] Olivia Myersradhaduane KRIS Mitchell [facility] CPT-4: 00613 03/08/2021 ([id number]) NURSE/OUTPATIENT VISIT EST Diagnosis: Essential (primary) hypertension[ICD10: I10] Kris PONCE [employer] CPT-4: 37119 04/22/2020 ([id number]) PER PM REEVAL EST PAT 65+ YR Diagnosis: PNEUMOCOCCAL VACCINE[ICD10: Z23] Diagnosis: Encounter for general adult medical examination without abnormal findings[ICD10: Z00.00] Diagnosis: Essential (primary) hypertension[ICD10: I10] Skylar Monzonzoherh PONCE [employer] CPT-4: 57815 04/07/2020 ([id number]) PER PM REEVAL EST PAT 65+ YR Diagnosis: Encounter for general adult medical examination without abnormal findings[ICD10: Z00.00] Diagnosis: PNEUMOCOCCAL VACCINE[ICD10: Z23] Diagnosis: Essential (primary) hypertension[ICD10: I10] Skylar PONCE S. ORENDER DO [facility] CPT-4: 69462 04/06/2019 ([id number]) PREV VISIT EST AGE 40-64 Diagnosis: Encounter for general adult medical examination without abnormal findings[ICD10: Z00.00] Diagnosis: Essential (primary) hypertension[ICD10: I10] Skylar PONCE S. ORENDER DO [facility] [employer] CPT-4: 34991 03/31/2018 ([id number]) PREV VISIT EST AGE 40-64 Diagnosis: Encounter for general adult medical examination without abnormal findings[ICD10: Z00.00] Diagnosis: Essential (primary) hypertension[ICD10: I10] Yara KahnMoris MARINAQUELINE SLarissa ORENDER DO [facility] CPT-4: 49559 03/08/2016 ([id number]) PREV VISIT EST AGE 40-64 Diagnosis: ROUTINE MEDICAL EXAM[ICD9: V70.0] Diagnosis: HYPERTENSION[ICD9: 401.9] Yara KahnMoris MARINAQUELINE S. ORE NDER DO [facility] CPT-4: 05284 04/25/2015 ([id number]) PREV VISIT EST AGE 40-64 Diagnosis: ROUTINE MEDICAL EXAM[ICD9: V70.0] Diagnosis: HYPERTENSION[ICD9: 401.9] Kris PONCE SLarissa ORE NDER DO [facility] CPT-4: 30240 03/25/2014 ([id number]) PREV VISIT EST AGE 40-64 Diagnosis: ROUTINE MEDICAL EXAM[ICD9: V70.0] Diagnosis: HYPERTENSION[ICD9: 401.9] Kris PONCE S. ORE NDER DO [employer] CPT-4: 99184 06/05/2012 PREV VISIT EST AGE 40-64 Diagnosis: ROUTINE MEDICAL EXAM[ICD9: V70.0] Diagnosis: HYPERTENSION[ICD9: 401.9] Kris PONCE SLarissa ORE NDER DO [facility] [employer] CPT-4: 41686 05/09/2011 ([id number]) OFFICE/OUTPATIENT VISIT, EST Kris HORTON SLarissa LOO CPT-4: 18553 03/01/2010 Plan of Care Planned Activity Notes Codes Status Date Visit Plan: Will get tick panel, CBC, CM P, CRP, and RF. Take ibuprofen for pain/fever. Will call with results. 03/08/2021 Visit NOS Plan: Plan Notes: Will get tick pa alexander, CBC, CMP,... 03/08/2021 Patient Education: Patient Medication Summary Completed 03/08/2021 Appointment: Kris Chang WPtel: [phone] [id number] NURSE SERVICES 04/22/2020 Visit Diagnosis Plan: Essential (primary) hypertension Discussion: rtc 2 weeks for bp check. fasting labs ordered. ICD-9 : 401.9 ICD-10 : I10 04/07/2020 Visit Diagnosis Plan: Encounter for [facility] adult medical examination without abnormal findings Discussion: need updated labs. will orde r for [place] [facility] [place]. sees dr. alvarado for prostate [...] ICD-10 : Z00.00 04/07/2020 Appointment: Skylar Ruth [address] [place], [place] [id number] Annual Well Visit 04/07/2020 Patient Education: lisinopril- [employer] Coupon [id number] [email or web address] Completed 04/07/2020 Patient Education: High Blood Pressure Co mpleted 04/07/2020 Visit Diagnosis Plan: Encounter for gene ral adult medical examination without abnormal findings Discussion: will obtain recent blood [place] [facility] and order additional tests as needed. [...] ICD-10 : I10 04/06/2019 Appointment: Skylar Ruth [address] [place], [place] [address] Annual Well Visit 04/06/2019 Patient Education: lisinopril- [employer] Coupon [id number] Completed 04/06/2019 Patient Education: High Blood Pressure Co mpleted 04/06/2019 Visit Diagnosis Plan: Essential (primary) hypertension Discussion: stable. continue current medications. fasting labs to be completed this week. ICD-9 : 401.9 ICD-10 : I10 03/31/2018 Visit Diagnosis Plan: Encounter for [facility] adult medical examination without abnormal findings Discussion: blood work ordered sent to [facility] lab for patient to have fasting [...] ICD-10 : Z00.00 03/31/2018 Appointment: Skylar Ruth [address] [place], [place] [phone] Annual Well Visit 03/31/2018 Patient Education: Patient Medication Summary Completed 03/31/2018 Appointment: Yara Payne WPtel: [phone] [facility] FOLLOW UP 03/08/2016 Patient Education: Patient Medication Summary Completed 03/08/2016 Patient Education: [facility] - [facility]aving [employer] - Lisinopril - 18-64 - Dynamic Portal ID Completed 03/08/2016 Visit Plan: Needs Screening Colonscopy- discussed the risks and refuses to schedule Refill Lisinopril 40 mg po daily Completed PSA, routine labs and clinical prostate exam in January- Dr. Alvarado 04/25/2015 Appointment: Yara Payne WPtel: [address] [place], [place] [phone] 04/22/2015 lm 04/25 Left message-lb Annual Well Visit 5 Patient Education: Patient Medication Summary Completed 04/25/2015 Patient Education: [facility] - Saving [employer] - Lisinopril - 18-64 - Dynamic Portal ID Completed 04/25/2015 Visit Plan: Cont current meds Check fast ing lab including PSA Needs colonoscopy--pt states he will think about it 03/25/2014 Appointment: Kris Chang WPtel: [address] [place], [place] [phone] 03/24 Annual Well Visit 03/25/2014 Patient Education: Patient Medication Summary Completed 03/25/2014 Visit Plan: Refuses prostate exam and co lonoscopy Continue lisinopril Check fasting lab 06/05/2012 Appointment: Kris Chang WPtel: [address] [place], [place] [phone] 06/04 vm ACUTE ILLNESS 06/05/2012 Patient Education: Patient Medication Summary Completed 06/05/2012 Visit Plan: Proceed with fasting lab Ref uses prostate exam Continue lisinopril at current dose 05/09/2011 Appointment: Kris Chang WPtel: [address] [place], [place] [phone] US FOLLOW UP 05/09/2011 Patient Education: Patient Medication Summary Completed 05/09/2011 Appointment: Kris Chang WPtel: [address] [place], [place] [phone] US FOLLOW UP 05/08/2011 Appointment: Kris Chang WPtel: [address] [place], [place] [phone] US BP CHECK 05/26/2010 Patient Education: Patient Medication Summary Completed 05/26/2010 Appointment: Kris Chang WPtel: [phone] [place], [place] [phone] FOLLOW UP 03/21/2010 Patient Education: Patient Medication Summary Completed 03/21/2010 Visit Plan: Check fasting lab and UA Sta rt Lisinopril Pt refuses prostate check and colonoscopy 1mo BP check 03/01/2010 Appointment: Kris Chang WPtel: [phone] [facility] ACUTE ILLNESS 03/01/2010 Patient Education: Patient Medication [...]
--- OUTSIDE RECORDS SUMMARY | 2021-04-05 13:18 | XMS REPORT | CCD ---
Author Author Nayan Chang D.O. Organization KRIS CHANG DO [facility] Address [address] [place] [id number] Phone Care Team Providers Care Heater Tender Name Role Phone Kris Chang D.O., PP Unavailable CCM Unavailable Summary Purpose Interface Exchange Insurance Providers Payer name Policy type / Coverage type Covered constitution party ID Effective Begin Date Effective End Date ABS FOR [employer] Commercial Insurance [id number] Unknown Family History Family History data not found Social History Social History Element Codes Description Effective Dates Tobacco history SNOMED CT: 677835752 Nonsmoker 05/09/2011 Allergies, Adverse Reactions, Alerts Substance [...] Fill Instructions lisinopril 40 mg tablet RxNorm: 618025 TAKE 1 TABLET BY MOUTH ONCE DAILY Tablet(s) Oral 01/27/2021 04/26/2021 Active lisinopril 40 mg tablet RxNorm: 180059 TAKE 1 TABLET BY MOUTH ONCE DAILY Tablet(s) Oral 04/07/2020 04/07/2020 Inactive lisinopril 40 mg tablet RxNorm: 769833 TAKE 1 TABLET BY MOUTH O NCE DAILY 10/23/2019 04/06/2020 Inactive lisinopril 40 mg tablet RxNorm: 377449 1 Tablet(s) PO QD 04/06/2019 0 10/02/2019 Inactive lisinopril 40 mg tablet RxNorm: 130223 1 Tablet(s) PO QD 10/30/2018 0 10/22/2019 Inactive lisinopril 40 mg tablet RxNorm: 668452 1 Tablet(s) PO QD 03/31/2018 0 09/25/2018 Inactive lisinopril 40 mg tablet RxNorm: 595688 1 Tablet(s) PO QD 03/27/2018 0 03/30/2018 Inactive lisinopril 40 mg tablet RxNorm: 105133 1 Tablet(s) PO QD 04/01/2017 0 03/31/2017 Inactive lisinopril 40 mg tablet RxNorm: 346092 1 Tablet(s) PO QD 04/01/2017 0 03/27/2018 Inactive lisinopril 40 mg tablet RxNorm: 886864 1 Tablet(s) PO QD 03/08/2016 0 04/01/2017 Inactive lisinopril 20 mg tablet RxNorm: 678921 Tablet(s) TAKE O NE TABLET BY MOUTH TWICE DAILY, NEED APPT AND LABS 02/16/2016 03/30/2018 Inactive lisinopril 20 mg tablet RxNorm: 333676 TAKE ONE TABLET BY MOUTH TWICE DAILY, NEED APPT AND LABS 10/17/2015 12/15/2015 Inactive lisinopril 40 mg tablet RxNorm: 442345 1 Tablet(s) PO QD 04/25/2015 0 02/16/2016 Inactive lisinopril 20 mg tablet RxNorm: 166341 1 Tablet(s) PO BID -need appt and labs 03/21/2015 10/17/2015 Inactive [AttnRPh: Saving yvrose ly/adjudicate RxGRP:SG20 RxBIN:[id number] RxPCN:HT ID#:[id number]] lisinopril 20 mg tablet RxNorm: 224242 1 Tablet(s) PO BID 03/29/2014 03/21/2015 Inactive [AttnRPh: Saving apply/adjudicate RxGRP: SG20 RxBIN:[id number] RxPCN:HT ID#:[id number]] lisinopril 20 mg tablet RxNorm: 508092 1 Tablet(s) PO BID 03/09/2014 03/22/2014 Inactive [AttnRPh: Saving apply/adjudicate RxGRP: SG20 RxBIN:[id number] RxPCN:HT ID#:[id number]] lisinopril 20 mg tablet RxNorm: 317636 Tablet(s) PO LEANNA E ONE TABLET BY MOUTH TWICE DAILY 06/05/2013 03/08/2014 Inactive lisinopril 20 mg tablet RxNorm: 832583 1 Tablet(s) PO BID 06/02/2012 05/27/2013 Inactive Due for labs and yearly check-up before further refills lisinopril 20 mg tablet RxNorm: 628386 1 Tablet(s) PO BID 05/09/2011 08/06/2011 Inactive Due for labs and yearly check-up before further refills lisinopril 20 mg Tab RxNorm: 638861 1 Tablet(s) PO BID 04/11/201101/2011 Inactive Due for labs and yearly check-up before further refills lisinopril 20 mg Tab RxNorm: 722813 1 Tablet(s) PO BID Due for yearly check-up in January 2011 01/08/2011 05/09/2011 Inactive Lisinopril 20 mg Tab RxNorm: 966428 1 Tablet(s) PO QD 05/26/201003/2011 Inactive Lisinopril 20 mg Tab RxNorm: 577892 1 Tablet(s) PO QD 05/04/201005/04 Inactive Lisinopril 20 mg Tab RxNorm: 960664 1 Tablet(s) PO QD 03/01/201004/03 Inactive Multivitamin & Mineral Formula Tab RxNorm: 1 Tablet(s) PO QD 03/01 Active Aspirin 81 mg Tab RxNorm: 250652 1 Tablet(s) PO QD 03/01/2010 Active Medication Administered No Medication Administered data Immunizations Vaccine Codes Date Status Influenza CVX: 141 07/19/2020 Pneumococcal CVX: 33 04/07/2020 Complete Influenza HD CVX: 135 10/17/2019 Pneumococcal CVX: 133 04/06/2019 Complete Results Observation Observation Code Item Item Code Result Date S vice Location COMPLETE BLOOD COUNT [id number] WBC 9.6 10e9/L 04/22/20 20 Unknown COMPLETE BLOOD COUNT [id number] RBC 4.64 10e12/L 2019 Unknown COMPLETE BLOOD COUNT [id number] HEMOGLOBIN 15.9 g/dL 04/22/20 20 Unknown COMPLETE BLOOD COUNT [id number] HEMATOCRIT 44.0 % 04/22/20 20 Unknown COMPLETE BLOOD COUNT [id number] MCV 94.8 fL 0 Unknown COMPLETE BLOOD COUNT [id number] MCH 34.3 pg 0 Unknown COMPLETE BLOOD COUNT [id number] MCHC 36.1 g/dL 0 Unknown COMPLETE BLOOD COUNT [id number] PLATELET COUNT 179 10e9/L Unknown COMPLETE BLOOD COUNT [id number] Mean Plt Volume 12.2 fL Unknown COMPLETE BLOOD COUNT [id number] Neut Auto 69.2 % 0 Unknown COMPLETE BLOOD COUNT [id number] Lymph Auto 20.7 % 04/22/20 20 Unknown COMPLETE BLOOD COUNT 1459107 [place] Auto 8.7 % 0 Unknown COMPLETE BLOOD COUNT [id number] RDW 12.6 % 0 Unknown COMPLETE BLOOD COUNT [id number] Eos Auto 1.1 % 0 Unknown COMPLETE BLOOD COUNT 0350481 Baso Auto 0.3 % 0 Unknown COMPLETE BLOOD COUNT [id number] Neutrophil Abs 6.64 10e9/L Unknown COMPLETE BLOOD COUNT [id number] Lymphocyte Abs 1.99 10e9/L Unknown COMPLETE BLOOD COUNT [id number] Monocyte Abs 0.84 10e9/L 04/03 Unknown COMPLETE BLOOD COUNT [id number] Eosinophil Abs 0.11 10e9/L Unknown COMPLETE BLOOD COUNT 6512113 RDW-SD 42.5 fL 0 Unknown COMPLETE BLOOD COUNT [id number] Basophil Abs 0.03 10e9/L 04/03 Unknown Procedures Procedure Codes Date ROUTINE VENIPUNCTURE CPT-4: 70972 04/22/2020 COMPLETE CBC W/AUTO DIFF WBC CPT-4: 42589 04/22/2020 PNEUMOCOCCAL VACC 23 RENITA IM CPT-4: 62054 04/07/2020 IMMUNIZATION ADMIN CPT-4: 75193 04/07/2020 PNEUMOCOCCAL VACC 13 RENITA IM CPT-4: 77533 04/06/2019 IMMUNIZATION ADMIN CPT-4: 54511 04/06/2019 Vital Signs Date Vital 03/08/2021 Blood Pressure 1: 127/82 Code: 8480-6 BMI: 24.1 Code: 25840-1 Heart Rate 1: 70 bpm Height: 5'11" Code: 8302-2 Respiratory Rate: 16 bpm SpO2: 97% Temperature: 36.3 (C) / 97.3 (F) Weight: 173 lbs Code: 43751-8 04/22/2020 Blood Pressure 1: 139/82 Code: 8480-6 Heart Rate 1: 63 bpm SpO2: 99% 04/07/2020 Blood Pressure 1: 140/85 Code: 8480-6 Heart Rate 1: 75 bpm Respiratory Rate: 20 bpm SpO2: 98% Temperature: 36.7 (C) / 98.0 (F) We ight: 179 lbs Code: 48495-8 04/06/2019 Blood Pressure 1: 136/82 Code: 8480-6 Heart Rate 1: 62 bpm SpO2: 96% Temperature: 36.3 (C) / 97.4 (F) Weight: 181 lbs Code: 69741-6 03/31/2018 Blood Pressure 1: 116/64 Code: 8480-6 BMI: 26.0 Code: 88393-1 Heart Rate 1: 62 bpm Height: 5'10" Code: 8302-2 Respiratory Rate: 22 bpm SpO2: 96% Temperature: 36.8 (C) / 98.2 (F) Weight: 181 lbs Code: 28420-5 03/08/2016 Blood Pressure 1: 142/84 Code: 8480-6 BMI: 26.5 Code: 58350-8 Heart Rate 1: 54 bpm Height: 5'10" Code: 8302-2 Respiratory Rate: 22 bpm SpO2: 97% Temperature: 36.7 (C) / 98.1 (F) Weight: 185 lbs Code: 31598-2 04/25/2015 Blood Pressure 1: 128/70 Code: 8480-6 BMI: 26.0 Code: 96246-7 Heart Rate 1: 78 bpm Height: 5'10" Code: 8302-2 Respiratory Rate: 22 bpm Temperat ure: 36.4 (C) / 97.6 (F) Weight: 181 lbs Code: 06753-9 03/25/2014 Blood Pressure 1: 120/78 Code: 8480-6 BMI: 26.1 Code: 91067-4 Heart Rate 1: 64 bpm Height: 5'10" Code: 8302-2 Respiratory Rate: 20 bpm Temperat ure: 36.6 (C) / 97.9 (F) Weight: 182 lbs Code: 50460-6 06/05/2012 Blood Pressure 1: 116/78 Code: 8480-6 BMI: 25.5 Code: 23083-5 Heart Rate 1: 60 bpm Height: 5'10" Code: 8302-2 Respiratory Rate: 20 bpm Temperat ure: 36.9 (C) / 98.4 (F) Weight: 178 lbs Code: 11874-5 05/09/2011 Blood Pressure 1: 120/70 Code: 8480-6 BMI: 25.8 Code: 03126-5 Heart Rate 1: 54 bpm Height: 5'10" Code: 8302-2 Temperature: 36.3 (C) / 97.3 (F) Weight: 180 lbs Code: 63880-4 05/26/2010 Blood Pressure 1: 135/88 Code: 8480-6 Bl ood Pressure 2: 135/80 Code: 8480-6 03/21/2010 Blood Pressure 1: 140/86 Code: 8480-6 He art Rate 1: 60 bpm 03/01/2010 Blood Pressure 1: 144/94 Code: 8480-6 Heart Rate 1: 60 bpm Temperature: 37.1 (C) / 98.8 (F) Weight: 176 lbs Code: 53200-8 Functional Status No Functional Status data Reason [...] head Encounters Encounter Performer Location Codes Date (69992) OFFICE/OUTPATIENT VISIT EST Diagnosis: Multiple joint pain[ICD10: M25.50] Diagnosis: Malaise[ICD10: R53.81] Diagnosis: Bitten or stung by nonvenomous insect and other nonvenomous arthropods, initial encounter[ICD10: W57.XXXA] Diagnosis: Tick bite of left lower leg, initial encounter[ICD10: S80.862A] Diagnosis: Fever, unspecified fever cause[ICD10: R50.9] Olivia Myersradhaduane [facility] [employer] CPT-4: 60903 03/08/2021 ([id number]) NURSE/OUTPATIENT VISIT EST Diagnosis: Essential (primary) hypertension[ICD10: I10] Kris PONCE [employer] CPT-4: 22342 04/22/2020 ([id number]) PER PM REEVAL EST PAT 65+ YR Diagnosis: PNEUMOCOCCAL VACCINE[ICD10: Z23] Diagnosis: Encounter for general adult medical examination without abnormal findings[ICD10: Z00.00] Diagnosis: Essential (primary) hypertension[ICD10: I10] Skylar Monzonzohreh PONCE [employer] CPT-4: 93655 04/07/2020 ([id number]) PER PM REEVAL EST PAT 65+ YR Diagnosis: Encounter for general adult medical examination without abnormal findings[ICD10: Z00.00] Diagnosis: PNEUMOCOCCAL VACCINE[ICD10: Z23] Diagnosis: Essential (primary) hypertension[ICD10: I10] Skylar PONCE S. ORENDER DO [facility] CPT-4: 98107 04/06/2019 ([id number]) PREV VISIT EST AGE 40-64 Diagnosis: Encounter for general adult medical examination without abnormal findings[ICD10: Z00.00] Diagnosis: Essential (primary) hypertension[ICD10: I10] Skylar PONCE S. ORENDER DO [employer] CPT-4: 77446 03/31/2018 ([id number]) PREV VISIT EST AGE 40-64 Diagnosis: Encounter for general adult medical examination without abnormal findings[ICD10: Z00.00] Diagnosis: Essential (primary) hypertension[ICD10: I10] Yara KahnMoris MARINAQUELINE SLarissa ORENDER DO [employer] CPT-4: 09600 03/08/2016 ([id number]) PREV VISIT EST AGE 40-64 Diagnosis: ROUTINE MEDICAL EXAM[ICD9: V70.0] Diagnosis: HYPERTENSION[ICD9: 401.9] Yara KahnMoris MARINAQUELINE S. ORE NDER DO [employer] CPT-4: 68813 04/25/2015 ([id number]) PREV VISIT EST AGE 40-64 Diagnosis: ROUTINE MEDICAL EXAM[ICD9: V70.0] Diagnosis: HYPERTENSION[ICD9: 401.9] Kris PONCE SLarissa ORE NDER DO [employer] CPT-4: 76955 03/25/2014 ([id number]) PREV VISIT EST AGE 40-64 Diagnosis: ROUTINE MEDICAL EXAM[ICD9: V70.0] Diagnosis: HYPERTENSION[ICD9: 401.9] Kris PONCE S. ORE NDER DO [employer] CPT-4: 39358 06/05/2012 PREV VISIT EST AGE 40-64 Diagnosis: ROUTINE MEDICAL EXAM[ICD9: V70.0] Diagnosis: HYPERTENSION[ICD9: 401.9] Kris PONCE SLarissa ORE NDER DO [employer] CPT-4: 26319 05/09/2011 ([id number]) OFFICE/OUTPATIENT VISIT, EST Kris HORTON SLarissa LOO CPT-4: 95715 03/01/2010 Plan of Care Planned Activity Notes Codes Status Date Visit Plan: Will get tick panel, CBC, CM P, CRP, and RF. Take ibuprofen for pain/fever. Will call with results. 03/08/2021 Visit NOS Plan: Plan Notes: Will get tick pa alexander, CBC, CMP,... 03/08/2021 Appointment: Olivia Toure WPtel: [phone] [facility] ACUTE ILLNESS 03/08/2021 Patient Education: Patient Medication Summary Completed 03/08/2021 Appointment: Kris Chang WPtel: [phone] [facility] NURSE SERVICES 04/22/2020 Visit Diagnosis Plan: Essential (primary) hypertension Discussion: rtc 2 weeks for bp check. fasting labs ordered. ICD-9 : 401.9 ICD-10 : I10 04/07/2020 Visit Diagnosis Plan: Encounter for [facility] adult medical examination without abnormal findings Discussion: need updated labs. will orde r for him to get done at [facility] tomorrow. sees dr. alvarado for prostate [...] : Z00.00 04/07/2020 Appointment: Skylar Ruth [address] [facility] Annual Well Visit 04/07/2020 Patient Education: lisinopril- Optimize[employer] Coupon [id number] [email or web address] Completed 04/07/2020 Patient Education: High Blood Pressure Co mpleted 04/07/2020 Visit Diagnosis Plan: Encounter for [facility] adult medical examination without abnormal findings Discussion: will obtain recent blood wor k from [facility] and order additional tests as needed. patient sees dr. alvraado annually for prostate checks. defers colonoscopy. educated [...] ICD-10 : I10 04/06/2019 Appointment: Skylar Ruth [address] [place] [address] Annual Well Visit 04/06/2019 Patient Education: lisinopril- [employer] Coupon [id number] Completed 04/06/2019 Patient Education: High Blood Pressure Co mpleted 04/06/2019 Visit Diagnosis Plan: Essential (primary) hypertension Discussion: stable. continue current medications. fasting labs to be completed this week. ICD-9 : 401.9 ICD-10 : I10 03/31/2018 Visit Diagnosis Plan: Encounter for [facility] adult medical examination without abnormal findings Discussion: blood work ordered sent to [facility] lab for patient to have fasting later [...] : Z00.00 03/31/2018 Appointment: Skylar Ruth [address] [facility] Annual Well Visit 03/31/2018 Patient Education: Patient Medication Summary Completed 03/31/2018 Appointment: Yara Payne WPtel: [address] [place], [place] [phone] FOLLOW UP 03/08/2016 Patient Education: Patient Medication Summary Completed 03/08/2016 Patient Education: [facility] - Saving AutoInj - Lisinopril - 18-64 - Dynamic Portal ID Completed 03/08/2016 Visit Plan: Needs Screening Colonscopy- discussed the risks and refuses to schedule Refill Lisinopril 40 mg po daily Completed PSA, routine labs and clinical prostate exam in January- Dr. Alvarado 04/25/2015 Appointment: Yara Payne WPtel: [address] [place], [place] [phone] 04/22/2015 lm 04/25 Left message-lb Annual Well Visit 5 Patient Education: Patient Medication Summary Completed 04/25/2015 Patient Education: [facility] - Saving AutoInj - Lisinopril - 18-64 - Dynamic Portal ID Completed 04/25/2015 Visit Plan: Cont current meds Check fast ing lab including PSA Needs colonoscopy--pt states he will think about it 03/25/2014 Appointment: Kris Chang WPtel: [address] [place], [place] [phone] 03/24 Annual Well Visit 03/25/2014 Patient Education: Patient Medication Summary Completed 03/25/2014 Visit Plan: Refuses prostate exam and co lonoscopy Continue lisinopril Check fasting lab 06/05/2012 Appointment: Kris Chang WPtel: [address] [place], [place] [phone] 06/04 vm ACUTE ILLNESS 06/05/2012 Patient Education: Patient Medication Summary Completed 06/05/2012 Visit Plan: Proceed with fasting lab Ref uses prostate exam Continue lisinopril at current dose 05/09/2011 Appointment: Kris Chang WPtel: [address] [place], [place] [phone] FOLLOW UP 05/09/2011 Patient Education: Patient Medication Summary Completed 05/09/2011 Appointment: Kris Chang WPtel: [address] [place], [place] [phone] FOLLOW UP 05/08/2011 Appointment: Kris Chang WPtel: [address] [place], [place] [phone] BP CHECK 05/26/2010 Patient Education: Patient Medication Summary Completed 05/26/2010 Appointment: Kris Chang WPtel: [phone] [place], [place] [phone] FOLLOW UP 03/21/2010 Patient Education: Patient Medication Summary Completed 03/21/2010 Visit Plan: Check fasting lab and UA Sta rt Lisinopril Pt refuses prostate check and colonoscopy 1mo BP check 03/01/2010 Appointment: Kris Chang WPtel: [phone] [place] [address] ACUTE ILLNESS 03/01/2010 Patient Education: Patient Medication [...]
--- OUTSIDE RECORDS SUMMARY | 2021-04-05 13:18 | XMS REPORT | CCD ---
Author Author Nayan Chang D.O. Organization [facility] Address [address] [place] [phone] Phone Care Team Providers Care Paint Prepper Name Role Phone Kris Chang D.O., PP Unavailable CCM Unavailable Summary Purpose Interface Exchange Insurance Providers Payer name Policy type / Coverage type Covered republican ID Effective Begin Date Effective End Date ABS FOR [employer] Commercial Insurance [id number] Unknown Family History Family History data not found Social History Social History Element Codes Description Effective Dates Tobacco history SNOMED CT: [id number] Nonsmoker 05/09/2011 Allergies, Adverse Reactions, Alerts Substance [...] Fill Instructions lisinopril 40 mg tablet RxNorm: 572186 TAKE 1 TABLET BY MOUTH ONCE DAILY Tablet(s) Oral 01/27/2021 04/26/2021 Active lisinopril 40 mg tablet RxNorm: 908187 TAKE 1 TABLET BY MOUTH ONCE DAILY Tablet(s) Oral 04/07/2020 04/07/2020 Inactive lisinopril 40 mg tablet RxNorm: 991666 TAKE 1 TABLET BY MOUTH O NCE DAILY 10/23/2019 04/06/2020 Inactive lisinopril 40 mg tablet RxNorm: 234124 1 Tablet(s) PO QD 04/06/2019 0 10/02/2019 Inactive lisinopril 40 mg tablet RxNorm: 133461 1 Tablet(s) PO QD 10/30/2018 0 10/22/2019 Inactive lisinopril 40 mg tablet RxNorm: 085922 1 Tablet(s) PO QD 03/31/2018 0 09/25/2018 Inactive lisinopril 40 mg tablet RxNorm: 281079 1 Tablet(s) PO QD 03/27/2018 0 03/30/2018 Inactive lisinopril 40 mg tablet RxNorm: 339504 1 Tablet(s) PO QD 04/01/2017 0 03/31/2017 Inactive lisinopril 40 mg tablet RxNorm: 814505 1 Tablet(s) PO QD 04/01/2017 0 03/27/2018 Inactive lisinopril 40 mg tablet RxNorm: 834305 1 Tablet(s) PO QD 03/08/2016 0 04/01/2017 Inactive lisinopril 20 mg tablet RxNorm: 404599 Tablet(s) TAKE O NE TABLET BY MOUTH TWICE DAILY, NEED APPT AND LABS 02/16/2016 03/30/2018 Inactive lisinopril 20 mg tablet RxNorm: 290371 TAKE ONE TABLET BY MOUTH TWICE DAILY, NEED APPT AND LABS 10/17/2015 12/15/2015 Inactive lisinopril 40 mg tablet RxNorm: 580214 1 Tablet(s) PO QD 04/25/2015 0 02/16/2016 Inactive lisinopril 20 mg tablet RxNorm: 658971 1 Tablet(s) PO BID -need appt and labs 03/21/2015 10/17/2015 Inactive [AttnRPh: Saving yvrose ly/adjudicate RxGRP:SG20 RxBIN:[id number] RxPCN:HT ID#:[id number]] lisinopril 20 mg tablet RxNorm: 824143 1 Tablet(s) PO BID 03/29/2014 03/21/2015 Inactive [AttnRPh: Saving apply/adjudicate RxGRP: SG20 RxBIN:[id number] RxPCN:HT ID#:[id number]] lisinopril 20 mg tablet RxNorm: 936519 1 Tablet(s) PO BID 03/09/2014 03/22/2014 Inactive [AttnRPh: Saving apply/adjudicate RxGRP: SG20 RxBIN:[id number] RxPCN:HT ID#:[id number]] lisinopril 20 mg tablet RxNorm: 403937 Tablet(s) PO LEANNA E ONE TABLET BY MOUTH TWICE DAILY 06/05/2013 03/08/2014 Inactive lisinopril 20 mg tablet RxNorm: 023548 1 Tablet(s) PO BID 06/02/2012 05/27/2013 Inactive Due for labs and yearly check-up before further refills lisinopril 20 mg tablet RxNorm: 875362 1 Tablet(s) PO BID 05/09/2011 08/06/2011 Inactive Due for labs and yearly check-up before further refills lisinopril 20 mg Tab RxNorm: 670759 1 Tablet(s) PO BID 04/11/201101/2011 Inactive Due for labs and yearly check-up before further refills lisinopril 20 mg Tab RxNorm: 418120 1 Tablet(s) PO BID Due for yearly check-up in January 2011 01/08/2011 05/09/2011 Inactive Lisinopril 20 mg Tab RxNorm: 999896 1 Tablet(s) PO QD 05/26/201003/2011 Inactive Lisinopril 20 mg Tab RxNorm: 792030 1 Tablet(s) PO QD 05/04/201005/04 Inactive Lisinopril 20 mg Tab RxNorm: 343731 1 Tablet(s) PO QD 03/01/201004/03 Inactive Multivitamin & Mineral Formula Tab RxNorm: 1 Tablet(s) PO QD 03/01 Active Aspirin 81 mg Tab RxNorm: 662477 1 Tablet(s) PO QD 03/01/2010 Active Medication Administered No Medication Administered data Immunizations Vaccine Codes Date Status Influenza CVX: 141 07/19/2020 Pneumococcal CVX: 33 04/07/2020 Complete Influenza HD CVX: 135 10/17/2019 Pneumococcal CVX: 133 04/06/2019 Complete Results Observation Observation Code Item Item Code Result Date S vice Location COMPLETE BLOOD COUNT [id number] WBC 9.6 10e9/L 04/22/20 20 Unknown COMPLETE BLOOD COUNT [id number] RBC 4.64 10e12/L 2019 Unknown COMPLETE BLOOD COUNT [id number] HEMOGLOBIN 15.9 g/dL 04/22/20 20 Unknown COMPLETE BLOOD COUNT [id number] HEMATOCRIT 44.0 % 04/22/20 20 Unknown COMPLETE BLOOD COUNT [id number] MCV 94.8 fL 0 Unknown COMPLETE BLOOD COUNT [id number] MCH 34.3 pg 0 Unknown COMPLETE BLOOD COUNT [id number] MCHC 36.1 g/dL 0 Unknown COMPLETE BLOOD COUNT [id number] PLATELET COUNT 179 10e9/L Unknown COMPLETE BLOOD COUNT [id number] Mean Plt Volume 12.2 fL Unknown COMPLETE BLOOD COUNT [id number] Neut Auto 69.2 % 0 Unknown COMPLETE BLOOD COUNT [id number] Lymph Auto 20.7 % 04/22/20 20 Unknown COMPLETE BLOOD COUNT [id number] [place] Auto 8.7 % 0 Unknown COMPLETE BLOOD COUNT [id number] RDW 12.6 % 0 Unknown COMPLETE BLOOD COUNT [id number] Eos Auto 1.1 % 0 Unknown COMPLETE BLOOD COUNT [id number] Baso Auto 0.3 % 0 Unknown COMPLETE BLOOD COUNT [id number] Neutrophil Abs 6.64 10e9/L Unknown COMPLETE BLOOD COUNT [id number] Lymphocyte Abs 1.99 10e9/L Unknown COMPLETE BLOOD COUNT [id number] Monocyte Abs 0.84 10e9/L 04/03 Unknown COMPLETE BLOOD COUNT [id number] Eosinophil Abs 0.11 10e9/L Unknown COMPLETE BLOOD COUNT [id number] RDW-SD 42.5 fL 0 Unknown COMPLETE BLOOD COUNT [id number] Basophil Abs 0.03 10e9/L 04/03 Unknown Procedures Procedure Codes Date ROUTINE VENIPUNCTURE CPT-4: 41377 04/22/2020 COMPLETE CBC W/AUTO DIFF WBC CPT-4: 84246 04/22/2020 PNEUMOCOCCAL VACC 23 RENITA IM CPT-4: 62926 04/07/2020 IMMUNIZATION ADMIN CPT-4: 21211 04/07/2020 PNEUMOCOCCAL VACC 13 RENITA IM CPT-4: 60902 04/06/2019 IMMUNIZATION ADMIN CPT-4: 71926 04/06/2019 Vital Signs Date Vital 03/08/2021 Blood Pressure 1: 127/82 Code: 8480-6 BMI: 24.1 Code: 68391-5 Heart Rate 1: 70 bpm Height: 5'11" Code: 8302-2 Respiratory Rate: 16 bpm SpO2: 97% Temperature: 36.3 (C) / 97.3 (F) Weight: 173 lbs Code: 07837-6 04/22/2020 Blood Pressure 1: 139/82 Code: 8480-6 Heart Rate 1: 63 bpm SpO2: 99% 04/07/2020 Blood Pressure 1: 140/85 Code: 8480-6 Heart Rate 1: 75 bpm Respiratory Rate: 20 bpm SpO2: 98% Temperature: 36.7 (C) / 98.0 (F) We ight: 179 lbs Code: 33917-3 04/06/2019 Blood Pressure 1: 136/82 Code: 8480-6 Heart Rate 1: 62 bpm SpO2: 96% Temperature: 36.3 (C) / 97.4 (F) Weight: 181 lbs Code: 33020-9 03/31/2018 Blood Pressure 1: 116/64 Code: 8480-6 BMI: 26.0 Code: 40333-8 Heart Rate 1: 62 bpm Height: 5'10" Code: 8302-2 Respiratory Rate: 22 bpm SpO2: 96% Temperature: 36.8 (C) / 98.2 (F) Weight: 181 lbs Code: 59308-3 03/08/2016 Blood Pressure 1: 142/84 Code: 8480-6 BMI: 26.5 Code: 82319-0 Heart Rate 1: 54 bpm Height: 5'10" Code: 8302-2 Respiratory Rate: 22 bpm SpO2: 97% Temperature: 36.7 (C) / 98.1 (F) Weight: 185 lbs Code: 56364-6 04/25/2015 Blood Pressure 1: 128/70 Code: 8480-6 BMI: 26.0 Code: 96674-8 Heart Rate 1: 78 bpm Height: 5'10" Code: 8302-2 Respiratory Rate: 22 bpm Temperat ure: 36.4 (C) / 97.6 (F) Weight: 181 lbs Code: 73958-1 03/25/2014 Blood Pressure 1: 120/78 Code: 8480-6 BMI: 26.1 Code: 09483-4 Heart Rate 1: 64 bpm Height: 5'10" Code: 8302-2 Respiratory Rate: 20 bpm Temperat ure: 36.6 (C) / 97.9 (F) Weight: 182 lbs Code: 01820-5 06/05/2012 Blood Pressure 1: 116/78 Code: 8480-6 BMI: 25.5 Code: 76319-7 Heart Rate 1: 60 bpm Height: 5'10" Code: 8302-2 Respiratory Rate: 20 bpm Temperat ure: 36.9 (C) / 98.4 (F) Weight: 178 lbs Code: 38622-2 05/09/2011 Blood Pressure 1: 120/70 Code: 8480-6 BMI: 25.8 Code: 30529-2 Heart Rate 1: 54 bpm Height: 5'10" Code: 8302-2 Temperature: 36.3 (C) / 97.3 (F) Weight: 180 lbs Code: 87837-4 05/26/2010 Blood Pressure 1: 135/88 Code: 8480-6 Bl ood Pressure 2: 135/80 Code: 8480-6 03/21/2010 Blood Pressure 1: 140/86 Code: 8480-6 He art Rate 1: 60 bpm 03/01/2010 Blood Pressure 1: 144/94 Code: 8480-6 Heart Rate 1: 60 bpm Temperature: 37.1 (C) / 98.8 (F) Weight: 176 lbs Code: 46663-0 Functional Status No Functional Status data Reason [...] head Encounters Encounter Performer Location Codes Date ([id number]) OFFICE/OUTPATIENT VISIT EST Diagnosis: Multiple joint pain[ICD10: M25.50] Diagnosis: Malaise[ICD10: R53.81] Diagnosis: Bitten or stung by nonvenomous insect and other nonvenomous arthropods, initial encounter[ICD10: W57.XXXA] Diagnosis: Tick bite of left lower leg, initial encounter[ICD10: S80.862A] Diagnosis: Fever, unspecified fever cause[ICD10: R50.9] Olivia Myersradhaduane [facility] CPT-4: 93066 03/08/2021 ([id number]) NURSE/OUTPATIENT VISIT EST Diagnosis: Essential (primary) hypertension[ICD10: I10] Kris PONCE [employer] CPT-4: 97972 04/22/2020 ([id number]) PER PM REEVAL EST PAT 65+ YR Diagnosis: PNEUMOCOCCAL VACCINE[ICD10: Z23] Diagnosis: Encounter for general adult medical examination without abnormal findings[ICD10: Z00.00] Diagnosis: Essential (primary) hypertension[ICD10: I10] Skylar Monzonzohreh PONCE [employer] CPT-4: 02080 04/07/2020 ([id number]) PER PM REEVAL EST PAT 65+ YR Diagnosis: Encounter for general adult medical examination without abnormal findings[ICD10: Z00.00] Diagnosis: PNEUMOCOCCAL VACCINE[ICD10: Z23] Diagnosis: Essential (primary) hypertension[ICD10: I10] Skylar PONCE S. ORENDER DO [facility] CPT-4: 26803 04/06/2019 ([id number]) PREV VISIT EST AGE 40-64 Diagnosis: Encounter for general adult medical examination without abnormal findings[ICD10: Z00.00] Diagnosis: Essential (primary) hypertension[ICD10: I10] Skylar PONCE S. ORENDER DO [email or web address] CPT-4: 26444 03/31/2018 ([id number]) PREV VISIT EST AGE 40-64 Diagnosis: Encounter for general adult medical examination without abnormal findings[ICD10: Z00.00] Diagnosis: Essential (primary) hypertension[ICD10: I10] Yara KahnMoris MARINAQUELINE SLarissa ORENDER DO [email or web address] CPT-4: 65508 03/08/2016 ([id number]) PREV VISIT EST AGE 40-64 Diagnosis: ROUTINE MEDICAL EXAM[ICD9: V70.0] Diagnosis: HYPERTENSION[ICD9: 401.9] Yara KahnMoris MARINAQUELINE S. ORE NDER DO [email or web address] CPT-4: 89154 04/25/2015 ([id number]) PREV VISIT EST AGE 40-64 Diagnosis: ROUTINE MEDICAL EXAM[ICD9: V70.0] Diagnosis: HYPERTENSION[ICD9: 401.9] Kris PONCE SLarissa ORE NDER DO [email or web address] CPT-4: 88009 03/25/2014 ([id number]) PREV VISIT EST AGE 40-64 Diagnosis: ROUTINE MEDICAL EXAM[ICD9: V70.0] Diagnosis: HYPERTENSION[ICD9: 401.9] Kris PONCE S. ORE NDER DO [email or web address] CPT-4: 08065 06/05/2012 PREV VISIT EST AGE 40-64 Diagnosis: ROUTINE MEDICAL EXAM[ICD9: V70.0] Diagnosis: HYPERTENSION[ICD9: 401.9] Kris PONCE SLarissa ORE NDER DO [email or web address] CPT-4: 31566 05/09/2011 ([id number]) OFFICE/OUTPATIENT VISIT, EST Kris HORTON SLarissa LOO CPT-4: 57894 03/01/2010 Plan of Care Planned Activity Notes Codes Status Date Visit Plan: Will get tick panel, CBC, CM P, CRP, and RF. Take ibuprofen for pain/fever. Will call with results. 03/08/2021 Visit NOS Plan: Plan Notes: Will get tick pa alexander, CBC, CMP,... 03/08/2021 Patient Education: Patient Medication Summary Completed 03/08/2021 Appointment: Kris Chang WPtel: [phone] [id number] NURSE SERVICES 04/22/2020 Visit Diagnosis Plan: Essential (primary) hypertension Discussion: rtc 2 weeks for bp check. fasting labs ordered. ICD-9 : 401.9 ICD-10 : I10 04/07/2020 Visit Diagnosis Plan: Encounter for gene [facility] adult medical examination without abnormal findings Discussion: need updated labs. will orde r for him to get done [place] [facility]. sees dr. alvarado for prostate [...] ICD-10 : Z00.00 04/07/2020 Appointment: Skylar Ruth [address] [place], [place] [id number] Annual Well Visit 04/07/2020 Patient Education: lisinopril- [employer] Coupon [phone] [email or web address]/[email or web address] Completed 04/07/2020 Patient Education: High Blood Pressure Co mpleted 04/07/2020 Visit Diagnosis Plan: Encounter for gene ral adult medical examination without abnormal findings Discussion: will obtain recent blood wor [place] [facility] and order additional tests as needed. [...] ICD-10 : I10 04/06/2019 Appointment: Skylar Ruth [address] [place], [place] [id number] Annual Well Visit 04/06/2019 Patient Education: lisinopril- [employer] Coupon [id number] Completed 04/06/2019 Patient Education: High Blood Pressure Co mpleted 04/06/2019 Visit Diagnosis Plan: Essential (primary) hypertension Discussion: stable. continue current medications. fasting labs to be completed this week. ICD-9 : 401.9 ICD-10 : I10 03/31/2018 Visit Diagnosis Plan: Encounter for [facility] adult medical examination without abnormal findings Discussion: blood work ordered sent to [facility] for patient to have fasting later [...] ICD-10 : Z00.00 03/31/2018 Appointment: Skylar Ruth [address] [place], [place] [phone] Annual Well Visit 03/31/2018 Patient Education: Patient Medication Summary Completed 03/31/2018 Appointment: Yara Payne WPtel: [phone] [facility] FOLLOW UP 03/08/2016 Patient Education: Patient Medication Summary Completed 03/08/2016 Patient Education: [facility] - Saving [employer] - Lisinopril - 18-64 - Dynamic Portal ID Completed 03/08/2016 Visit Plan: Needs Screening Colonscopy- discussed the risks and refuses to schedule Refill Lisinopril 40 mg po daily Completed PSA, routine labs and clinical prostate exam in January- Dr. Alvarado 04/25/2015 Appointment: Yara Payne WPtel: [address] [place], [place] [phone] 04/22/2015 lm 04/25 Left message-lb Annual Well Visit 5 Patient Education: Patient Medication Summary Completed 04/25/2015 Patient Education: [facility] - Saving Auto[employer]j - Lisinopril - 18-64 - Dynamic Portal ID Completed 04/25/2015 Visit Plan: Cont current meds Check fast ing lab including PSA Needs colonoscopy--pt states he will think about it 03/25/2014 Appointment: Kris Chang WPtel: [address] [place], [place] [phone] 03/24 Annual Well Visit 03/25/2014 Patient Education: Patient Medication Summary Completed 03/25/2014 Visit Plan: Refuses prostate exam and co lonoscopy Continue lisinopril Check fasting lab 06/05/2012 Appointment: Kris Chang WPtel: [address] [place], [place] [phone] 06/04 vm ACUTE ILLNESS 06/05/2012 Patient Education: Patient Medication Summary Completed 06/05/2012 Visit Plan: Proceed with fasting lab Ref uses prostate exam Continue lisinopril at current dose 05/09/2011 Appointment: Kris Chang WPtel: [address] [place], [place] [phone] US FOLLOW UP 05/09/2011 Patient Education: Patient Medication Summary Completed 05/09/2011 Appointment: Kris Chang WPtel: [address] [place], [place] [phone] US FOLLOW UP 05/08/2011 Appointment: Kris Chang WPtel: [address] [place], [place] [phone] US BP CHECK 05/26/2010 Patient Education: Patient Medication Summary Completed 05/26/2010 Appointment: Kris Chang WPtel: [address] [place], [place] [phone] FOLLOW UP 03/21/2010 Patient Education: Patient Medication Summary Completed 03/21/2010 Visit Plan: Check fasting lab and UA Sta rt Lisinopril Pt refuses prostate check and colonoscopy 1mo BP check 03/01/2010 Appointment: Kris Chang WPtel: [phone] [facility] ACUTE ILLNESS 03/01/2010 Patient Education: Patient Medication [...]
--- OUTSIDE RECORDS SUMMARY | 2021-04-05 13:18 | XMS REPORT | CCD ---
Author Author Nayan Chang D.O. Organization [facility] Address [address] [place] [phone] Phone Care Team Providers Care Clinical Nurse Specialist Name Role Phone Kris Chang D.O., PP Unavailable CCM Unavailable Summary Purpose Interface Exchange Insurance Providers Payer name Policy type / Coverage type Covered constitution party ID Effective Begin Date Effective End Date ABS FOR opentabs Commercial Insurance [id number] Unknown Family History Family History data not found Social History Social History Element Codes Description Effective Dates Tobacco history SNOMED CT: 192700398 Nonsmoker 05/09/2011 Allergies, Adverse Reactions, Alerts Substance [...] Instructions doxycycline hyclate 100 mg capsule RxNorm: 0859496 1 Cap jalen(s) Oral two times a day 03/13/2021 03/13/2021 Inactive doxycycline hyclate 100 mg capsule RxNorm: 6106080 1 Cap jalen(s) Oral two times a day 03/13/2021 03/19/2021 Active lisinopril 40 mg tablet RxNorm: 180400 TAKE 1 TABLET BY MOUTH ONCE DAILY Tablet(s) Oral 01/27/2021 04/26/2021 Active lisinopril 40 mg tablet RxNorm: 126436 TAKE 1 TABLET BY MOUTH ONCE DAILY Tablet(s) Oral 04/07/2020 04/07/2020 Inactive lisinopril 40 mg tablet RxNorm: 407044 TAKE 1 TABLET BY MOUTH O NCE DAILY 10/23/2019 04/06/2020 Inactive lisinopril 40 mg tablet RxNorm: 326081 1 Tablet(s) PO QD 04/06/2019 0 10/02/2019 Inactive lisinopril 40 mg tablet RxNorm: 545808 1 Tablet(s) PO QD 10/30/2018 0 10/22/2019 Inactive lisinopril 40 mg tablet RxNorm: 723656 1 Tablet(s) PO QD 03/31/2018 0 09/25/2018 Inactive lisinopril 40 mg tablet RxNorm: 219918 1 Tablet(s) PO QD 03/27/2018 0 03/30/2018 Inactive lisinopril 40 mg tablet RxNorm: 301449 1 Tablet(s) PO QD 04/01/2017 0 03/31/2017 Inactive lisinopril 40 mg tablet RxNorm: 231105 1 Tablet(s) PO QD 04/01/2017 0 03/27/2018 Inactive lisinopril 40 mg tablet RxNorm: 225352 1 Tablet(s) PO QD 03/08/2016 0 04/01/2017 Inactive lisinopril 20 mg tablet RxNorm: 211486 Tablet(s) TAKE O NE TABLET BY MOUTH TWICE DAILY, NEED APPT AND LABS 02/16/2016 03/30/2018 Inactive lisinopril 20 mg tablet RxNorm: 756751 TAKE ONE TABLET BY MOUTH TWICE DAILY, NEED APPT AND LABS 10/17/2015 12/15/2015 Inactive lisinopril 40 mg tablet RxNorm: 524425 1 Tablet(s) PO QD 04/25/2015 0 02/16/2016 Inactive lisinopril 20 mg tablet RxNorm: 462044 1 Tablet(s) PO BID -need appt and labs 03/21/2015 10/17/2015 Inactive [AttnRPh: Saving yvrose ly/adjudicate RxGRP:SG20 RxBIN:[id number] RxPCN:HT ID#:[id number]] lisinopril 20 mg tablet RxNorm: 838004 1 Tablet(s) PO BID 03/29/2014 03/21/2015 Inactive [AttnRPh: Saving apply/adjudicate RxGRP: SG20 RxBIN:[id number] RxPCN:HT ID#:[id number]] lisinopril 20 mg tablet RxNorm: 742108 1 Tablet(s) PO BID 03/09/2014 03/22/2014 Inactive [AttnRPh: Saving apply/adjudicate RxGRP: SG20 RxBIN:[id number] RxPCN:HT ID#:[id number]] lisinopril 20 mg tablet RxNorm: 576853 Tablet(s) PO LEANNA E ONE TABLET BY MOUTH TWICE DAILY 06/05/2013 03/08/2014 Inactive lisinopril 20 mg tablet RxNorm: 011550 1 Tablet(s) PO BID 06/02/2012 05/27/2013 Inactive Due for labs and yearly check-up before further refills lisinopril 20 mg tablet RxNorm: 073064 1 Tablet(s) PO BID 05/09/2011 08/06/2011 Inactive Due for labs and yearly check-up before further refills lisinopril 20 mg Tab RxNorm: 114717 1 Tablet(s) PO BID 04/11/201101/2011 Inactive Due for labs and yearly check-up before further refills lisinopril 20 mg Tab RxNorm: 182336 1 Tablet(s) PO BID Due for yearly check-up in January 2011 01/08/2011 05/09/2011 Inactive Lisinopril 20 mg Tab RxNorm: 560616 1 Tablet(s) PO QD 05/26/2010 09/03/2011 Inactive Lisinopril 20 mg Tab RxNorm: 351787 1 Tablet(s) PO QD 05/04/201005/04 Inactive Lisinopril 20 mg Tab RxNorm: 125659 1 Tablet(s) PO QD 03/01/201004/03 Inactive Multivitamin & Mineral Formula Tab RxNorm: 1 Tablet(s) PO QD 03/01 Active Aspirin 81 mg Tab RxNorm: 291427 1 Tablet(s) PO QD 03/01/2010 Active Medication Administered No Medication Administered data Immunizations Vaccine Codes Date Status Influenza CVX: 141 07/19/2020 Pneumococcal CVX: 33 04/07/2020 Complete Influenza HD CVX: 135 10/17/2019 Pneumococcal CVX: 133 04/06/2019 Complete Results Observation Observation Code Item Item Code Result Date S vice Location COMPLETE BLOOD COUNT [id number] WBC 9.6 10e9/L 04/22/20 20 Unknown COMPLETE BLOOD COUNT [id number] RBC 4.64 10e12/L 2019 Unknown COMPLETE BLOOD COUNT [id number] HEMOGLOBIN 15.9 g/dL 04/22/20 20 Unknown COMPLETE BLOOD COUNT [id number] HEMATOCRIT 44.0 % 04/22/20 20 Unknown COMPLETE BLOOD COUNT [id number] MCV 94.8 fL 0 Unknown COMPLETE BLOOD COUNT [id number] MCH 34.3 pg 0 Unknown COMPLETE BLOOD COUNT [id number] MCHC 36.1 g/dL 0 Unknown COMPLETE BLOOD COUNT [id number] PLATELET COUNT 179 10e9/L Unknown COMPLETE BLOOD COUNT [id number] Mean Plt Volume 12.2 fL Unknown COMPLETE BLOOD COUNT [id number] Neut Auto 69.2 % 0 Unknown COMPLETE BLOOD COUNT [id number] Lymph Auto 20.7 % 04/22/20 20 Unknown COMPLETE BLOOD COUNT [id number] Ralls Auto 8.7 % 0 Unknown COMPLETE BLOOD COUNT [id number] Eos Auto 1.1 % 0 Unknown COMPLETE BLOOD COUNT [id number] RDW 12.6 % 0 Unknown COMPLETE BLOOD COUNT [id number] Baso Auto 0.3 % 0 Unknown COMPLETE BLOOD COUNT [id number] Neutrophil Abs 6.64 10e9/L Unknown COMPLETE BLOOD COUNT [id number] Lymphocyte Abs 1.99 10e9/L Unknown COMPLETE BLOOD COUNT [id number] Monocyte Abs 0.84 10e9/L 04/03 Unknown COMPLETE BLOOD COUNT [id number] Eosinophil Abs 0.11 10e9/L Unknown COMPLETE BLOOD COUNT [id number] RDW-SD 42.5 fL 0 Unknown COMPLETE BLOOD COUNT [id number] Basophil Abs 0.03 10e9/L 04/03 Unknown Procedures Procedure Codes Date ROUTINE VENIPUNCTURE CPT-4: 13260 04/22/2020 COMPLETE CBC W/AUTO DIFF WBC CPT-4: 75509 04/22/2020 PNEUMOCOCCAL VACC 23 RENITA IM CPT-4: 09875 04/07/2020 IMMUNIZATION ADMIN CPT-4: 25258 04/07/2020 PNEUMOCOCCAL VACC 13 RENITA IM CPT-4: 47193 04/06/2019 IMMUNIZATION ADMIN CPT-4: 81215 04/06/2019 Vital Signs Date Vital 03/08/2021 Blood Pressure 1: 127/82 Code: 8480-6 BMI: 24.1 Code: 70518-8 Heart Rate 1: 70 bpm Height: 5'11" Code: 8302-2 Respiratory Rate: 16 bpm SpO2: 97% Temperature: 36.3 (C) / 97.3 (F) Weight: 173 lbs Code: 88528-2 04/22/2020 Blood Pressure 1: 139/82 Code: 8480-6 Heart Rate 1: 63 bpm SpO2: 99% 04/07/2020 Blood Pressure 1: 140/85 Code: 8480-6 Heart Rate 1: 75 bpm Respiratory Rate: 20 bpm SpO2: 98% Temperature: 36.7 (C) / 98.0 (F) We ight: 179 lbs Code: 83520-2 04/06/2019 Blood Pressure 1: 136/82 Code: 8480-6 Heart Rate 1: 62 bpm SpO2: 96% Temperature: 36.3 (C) / 97.4 (F) Weight: 181 lbs Code: 88199-7 03/31/2018 Blood Pressure 1: 116/64 Code: 8480-6 BMI: 26.0 Code: 89078-4 Heart Rate 1: 62 bpm Height: 5'10" Code: 8302-2 Respiratory Rate: 22 bpm SpO2: 96% Temperature: 36.8 (C) / 98.2 (F) Weight: 181 lbs Code: 36247-0 03/08/2016 Blood Pressure 1: 142/84 Code: 8480-6 BMI: 26.5 Code: 24397-2 Heart Rate 1: 54 bpm Height: 5'10" Code: 8302-2 Respiratory Rate: 22 bpm SpO2: 97% Temperature: 36.7 (C) / 98.1 (F) Weight: 185 lbs Code: 88331-8 04/25/2015 Blood Pressure 1: 128/70 Code: 8480-6 BMI: 26.0 Code: 40227-4 Heart Rate 1: 78 bpm Height: 5'10" Code: 8302-2 Respiratory Rate: 22 bpm Temperat ure: 36.4 (C) / 97.6 (F) Weight: 181 lbs Code: 65982-1 03/25/2014 Blood Pressure 1: 120/78 Code: 8480-6 BMI: 26.1 Code: 61919-6 Heart Rate 1: 64 bpm Height: 5'10" Code: 8302-2 Respiratory Rate: 20 bpm Temperat ure: 36.6 (C) / 97.9 (F) Weight: 182 lbs Code: 38817-9 06/05/2012 Blood Pressure 1: 116/78 Code: 8480-6 BMI: 25.5 Code: 86133-6 Heart Rate 1: 60 bpm Height: 5'10" Code: 8302-2 Respiratory Rate: 20 bpm Temperat ure: 36.9 (C) / 98.4 (F) Weight: 178 lbs Code: 98071-6 05/09/2011 Blood Pressure 1: 120/70 Code: 8480-6 BMI: 25.8 Code: 89329-5 Heart Rate 1: 54 bpm Height: 5'10" Code: 8302-2 Temperature: 36.3 (C) / 97.3 (F) Weight: 180 lbs Code: 45128-8 05/26/2010 Blood Pressure 1: 135/88 Code: 8480-6 Bl ood Pressure 2: 135/80 Code: 8480-6 03/21/2010 Blood Pressure 1: 140/86 Code: 8480-6 He art Rate 1: 60 bpm 03/01/2010 Blood Pressure 1: 144/94 Code: 8480-6 Heart Rate 1: 60 bpm Temperature: 37.1 (C) / 98.8 (F) Weight: 176 lbs Code: 59148-6 Functional Status No Functional Status data Reason [...] head Encounters Encounter Performer Location Codes Date () OFFICE/OUTPATIENT VISIT EST Diagnosis: Multiple joint pain[ICD10: M25.50] Diagnosis: Malaise[ICD10: R53.81] Diagnosis: Bitten or stung by nonvenomous insect and other nonvenomous arthropods, initial encounter[ICD10: W57.XXXA] Diagnosis: Tick bite of left lower leg, initial encounter[ICD10: S80.862A] Diagnosis: Fever, unspecified fever cause[ICD10: R50.9] Olivia CHANG [facility] CPT-4: 99639 03/08/2021 ([id number]) NURSE/OUTPATIENT VISIT EST Diagnosis: Essential (primary) hypertension[ICD10: I10] Kris CHANG DO [facility] CPT-4: 06623 04/22/2020 ([id number]) PER PM REEVAL EST PAT 65+ YR Diagnosis: PNEUMOCOCCAL VACCINE[ICD10: Z23] Diagnosis: Encounter for general adult medical examination without abnormal findings[ICD10: Z00.00] Diagnosis: Essential (primary) hypertension[ICD10: I10] Skylar CHANG DO [facility] CPT-4: 83994 04/07/2020 ([id number]) PER PM REEVAL EST PAT 65+ YR Diagnosis: Encounter for general adult medical examination without abnormal findings[ICD10: Z00.00] Diagnosis: PNEUMOCOCCAL VACCINE[ICD10: Z23] Diagnosis: Essential (primary) hypertension[ICD10: I10] Skylar BAUERNDER [facility] CPT-4: 88632 04/06/2019 ([id number]) PREV VISIT EST AGE 40-64 Diagnosis: Encounter for general adult medical examination without abnormal findings[ICD10: Z00.00] Diagnosis: Essential (primary) hypertension[ICD10: I10] Skylar BAUERNDCRISTI PACHECO [facility] CPT-4: 99070 03/31/2018 ([id number]) PREV VISIT EST AGE 40-64 Diagnosis: Encounter for general adult medical examination without abnormal findings[ICD10: Z00.00] Diagnosis: Essential (primary) hypertension[ICD10: I10] Yara BAUERNDER [facility] CPT-4: 78946 03/08/2016 ([id number]) PREV VISIT EST AGE 40-64 Diagnosis: ROUTINE MEDICAL EXAM[ICD9: V70.0] Diagnosis: HYPERTENSION[ICD9: 401.9] Yara BAUER NDER [facility] CPT-4: 00105 04/25/2015 ([id number]) PREV VISIT EST AGE 40-64 Diagnosis: ROUTINE MEDICAL EXAM[ICD9: V70.0] Diagnosis: HYPERTENSION[ICD9: 401.9] Kris JIMENEZLINE S. JUANCARLOS NDER DO [facility] CPT-4: 59083 03/25/2014 ([id number]) PREV VISIT EST AGE 40-64 Diagnosis: ROUTINE MEDICAL EXAM[ICD9: V70.0] Diagnosis: HYPERTENSION[ICD9: 401.9] Kris BAUER NDER [facility] CPT-4: 88128 06/05/2012 PREV VISIT EST AGE 40-64 Diagnosis: ROUTINE MEDICAL EXAM[ICD9: V70.0] Diagnosis: HYPERTENSION[ICD9: 401.9] Kris RODRIGUEZ DO [facility] CPT-4: 34725 05/09/2011 ([id number]) OFFICE/OUTPATIENT VISIT, EST Kris CHANG DO [facility] CPT-4: 06530 03/01/2010 Plan of Care Planned Activity Notes Codes Status Date Visit Plan: Will get tick panel, CBC, CM P, CRP, and RF. Take ibuprofen for pain/fever. Will call with results. 03/08/2021 Visit NOS Plan: Plan Notes: Will get tick pa alexander, CBC, CMP,... 03/08/2021 Appointment: Olivia Toure WPtel: [phone] [facility] 03/08/2021 Patient Education: Patient Medication Summary Completed 03/08/2021 Appointment: Kris Chang WPtel: [address] [facility] 04/22/2020 Visit Diagnosis Plan: Essential (primary) hypertension Discussion: rtc 2 weeks for bp check. fasting labs ordered. ICD-9 : 401.9 ICD-10 : I10 04/07/2020 Visit Diagnosis Plan: Encounter for [facility] adult medical examination without abnormal findings Discussion: need updated labs. will orde r for him to get done at [facility] lab tomorrow. sees dr. [...] : Z00.00 04/07/2020 Appointment: Skylar Ruth [address] Annual Well Visit 04/07/2020 Patient Education: lisinopril- [employer] Coupon [id number] [email or web address] Completed 04/07/2020 Patient Education: High Blood Pressure Co mpleted 04/07/2020 Visit Diagnosis Plan: Encounter for [facility] adult medical examination without abnormal findings Discussion: will obtain recent blood wor k from [facility] lab and order additional [...] : I10 04/06/2019 Appointment: [facility] [facility] 04/06/2019 Patient Education: lisinopril- [employer] Coupon [id number] Completed 04/06/2019 Patient Education: High Blood Pressure Co mpleted 04/06/2019 Visit Diagnosis Plan: Essential (primary) hypertension Discussion: stable. continue current medications. fasting labs to be completed this week. ICD-9 : 401.9 ICD-10 : I10 03/31/2018 Visit Diagnosis Plan: Encounter for [facility] adult medical examination without abnormal findings Discussion: blood work ordered sent to [facility] lab for patient to have fasting [...] ICD-10 : Z00.00 03/31/2018 Appointment: Skylar Ruth [address] [place] [address] Annual Well Visit 03/31/2018 Patient Education: Patient Medication Summary Completed 03/31/2018 Appointment: Yara Payne WPtel: [address] [place] [address] FOLLOW UP 03/08/2016 Patient Education: Patient Medication Summary Completed 03/08/2016 Patient Education: [facility] - Saving AutoInj - Lisinopril - 18-64 - Dynamic Portal ID Completed 03/08/2016 Visit Plan: Needs Screening Colonscopy- discussed the risks and refuses to schedule Refill Lisinopril 40 mg po daily Completed PSA, routine labs and clinical prostate exam in January- Dr. Alvarado 04/25/2015 Appointment: Yara Payne WPtel: [address] [place] [address] 04/22/2015 lm 04/25 Left message-lb Annual Well Visit 5 Patient Education: Patient Medication Summary Completed 04/25/2015 Patient Education: [facility] - Saving AutoInj - Lisinopril - 18-64 - Dynamic Portal ID Completed 04/25/2015 Visit Plan: Cont current meds Check fast ing lab including PSA Needs colonoscopy--pt states he will think about it 03/25/2014 Appointment: Kris Chang WPtel: [address] [place], [place] [phone] 03/24 Annual Well Visit 03/25/2014 Patient Education: Patient Medication Summary Completed 03/25/2014 Visit Plan: Refuses prostate exam and co lonoscopy Continue lisinopril Check fasting lab 06/05/2012 Appointment: Kris Chang WPtel: [address] [place], [place] [phone] 06/04 vm ACUTE ILLNESS 06/05/2012 Patient Education: Patient Medication Summary Completed 06/05/2012 Visit Plan: Proceed with fasting lab Ref uses prostate exam Continue lisinopril at current dose 05/09/2011 Appointment: Kris Changl: [address] [place], [place] [phone] [place] FOLLOW UP 05/09/2011 Patient Education: Patient Medication Summary Completed 05/09/2011 Appointment: Kris Chang WPtel: [address] [place], [place] [phone] FOLLOW UP 05/08/2011 Appointment: Kris Chang WPtel: [address] [place], [place] [phone] BP CHECK 05/26/2010 Patient Education: Patient Medication Summary Completed 05/26/2010 Appointment: Kris Chang WPtel: [address] [place] [address] FOLLOW UP 03/21/2010 Patient Education: Patient Medication Summary Completed 03/21/2010 Visit Plan: Check fasting lab and UA Sta rt Lisinopril Pt refuses prostate check and colonoscopy 1mo BP check 03/01/2010 Appointment: Kris Chang WPtel: [address] [place], [place] [phone] 03/01/2010 Patient Education: Patient Medication [...]
--- OUTSIDE RECORDS SUMMARY | 2021-04-05 13:18 | XMS REPORT | CCD ---
Author Author Nayan Chang D.O. Organization KRIS CHANG DO [facility] Address [address] [place] [phone] Phone Care Team Providers Care Battery Tester Name Role Phone Kris Chang D.O., PP Unavailable CCM Unavailable Summary Purpose Interface Exchange Insurance Providers Payer name Policy type / Coverage type Covered republican ID Effective Begin Date Effective End Date ABS FOR [employer] Commercial Insurance [id number] Unknown Family History Family History data not found Social History Social History Element Codes Description Effective Dates Tobacco history SNOMED CT: 897115548 Nonsmoker 05/09/2011 Allergies, Adverse Reactions, Alerts Substance [...] Fill Instructions lisinopril 40 mg tablet RxNorm: 275803 TAKE 1 TABLET BY MOUTH ONCE DAILY Tablet(s) Oral 01/27/2021 04/26/2021 Active lisinopril 40 mg tablet RxNorm: 979222 TAKE 1 TABLET BY MOUTH ONCE DAILY Tablet(s) Oral 04/07/2020 04/07/2020 Inactive lisinopril 40 mg tablet RxNorm: 308007 TAKE 1 TABLET BY MOUTH O NCE DAILY 10/23/2019 04/06/2020 Inactive lisinopril 40 mg tablet RxNorm: 706676 1 Tablet(s) PO QD 04/06/2019 0 10/02/2019 Inactive lisinopril 40 mg tablet RxNorm: 568196 1 Tablet(s) PO QD 10/30/2018 0 10/22/2019 Inactive lisinopril 40 mg tablet RxNorm: 173506 1 Tablet(s) PO QD 03/31/2018 0 09/25/2018 Inactive lisinopril 40 mg tablet RxNorm: 918563 1 Tablet(s) PO QD 03/27/2018 0 03/30/2018 Inactive lisinopril 40 mg tablet RxNorm: 632876 1 Tablet(s) PO QD 04/01/2017 0 03/31/2017 Inactive lisinopril 40 mg tablet RxNorm: 096810 1 Tablet(s) PO QD 04/01/2017 0 03/27/2018 Inactive lisinopril 40 mg tablet RxNorm: 496985 1 Tablet(s) PO QD 03/08/2016 0 04/01/2017 Inactive lisinopril 20 mg tablet RxNorm: 096941 Tablet(s) TAKE O NE TABLET BY MOUTH TWICE DAILY, NEED APPT AND LABS 02/16/2016 03/30/2018 Inactive lisinopril 20 mg tablet RxNorm: 369560 TAKE ONE TABLET BY MOUTH TWICE DAILY, NEED APPT AND LABS 10/17/2015 12/15/2015 Inactive lisinopril 40 mg tablet RxNorm: 354730 1 Tablet(s) PO QD 04/25/2015 0 02/16/2016 Inactive lisinopril 20 mg tablet RxNorm: 226425 1 Tablet(s) PO BID -need appt and labs 03/21/2015 10/17/2015 Inactive [AttnRPh: Saving yvrose ly/adjudicate RxGRP:SG20 RxBIN:[id number] RxPCN:HT ID#:[id number]] lisinopril 20 mg tablet RxNorm: 263859 1 Tablet(s) PO BID 03/29/2014 03/21/2015 Inactive [AttnRPh: Saving apply/adjudicate RxGRP: SG20 RxBIN:[id number] RxPCN:HT ID#:[id number]] lisinopril 20 mg tablet RxNorm: 480169 1 Tablet(s) PO BID 03/09/2014 03/22/2014 Inactive [AttnRPh: Saving apply/adjudicate RxGRP: SG20 RxBIN:[id number] RxPCN:HT ID#:[id number]] lisinopril 20 mg tablet RxNorm: 408820 Tablet(s) PO LEANNA E ONE TABLET BY MOUTH TWICE DAILY 06/05/2013 03/08/2014 Inactive lisinopril 20 mg tablet RxNorm: 972621 1 Tablet(s) PO BID 06/02/2012 05/27/2013 Inactive Due for labs and yearly check-up before further refills lisinopril 20 mg tablet RxNorm: 044827 1 Tablet(s) PO BID 05/09/2011 08/06/2011 Inactive Due for labs and yearly check-up before further refills lisinopril 20 mg Tab RxNorm: 899607 1 Tablet(s) PO BID 04/11/201101/2011 Inactive Due for labs and yearly check-up before further refills lisinopril 20 mg Tab RxNorm: 584732 1 Tablet(s) PO BID Due for yearly check-up in January 2011 01/08/2011 05/09/2011 Inactive Lisinopril 20 mg Tab RxNorm: 084635 1 Tablet(s) PO QD 05/26/201003/2011 Inactive Lisinopril 20 mg Tab RxNorm: 776525 1 Tablet(s) PO QD 05/04/201005/04 Inactive Lisinopril 20 mg Tab RxNorm: 150395 1 Tablet(s) PO QD 03/01/201004/03 Inactive Multivitamin & Mineral Formula Tab RxNorm: 1 Tablet(s) PO QD 03/01 Active Aspirin 81 mg Tab RxNorm: 683653 1 Tablet(s) PO QD 03/01/2010 Active Medication Administered No Medication Administered data Immunizations Vaccine Codes Date Status Influenza CVX: 141 07/19/2020 Pneumococcal CVX: 33 04/07/2020 Complete Influenza HD CVX: 135 10/17/2019 Pneumococcal CVX: 133 04/06/2019 Complete Results Observation Observation Code Item Item Code Result Date S vice Location COMPLETE BLOOD COUNT [id number] WBC 9.6 10e9/L 04/22/20 20 Unknown COMPLETE BLOOD COUNT [id number] RBC 4.64 10e12/L 2019 Unknown COMPLETE BLOOD COUNT [id number] HEMOGLOBIN 15.9 g/dL 04/22/20 20 Unknown COMPLETE BLOOD COUNT [id number] HEMATOCRIT 44.0 % 04/22/20 20 Unknown COMPLETE BLOOD COUNT [id number] MCV 94.8 fL 0 Unknown COMPLETE BLOOD COUNT [id number] MCH 34.3 pg 0 Unknown COMPLETE BLOOD COUNT [id number] MCHC 36.1 g/dL 0 Unknown COMPLETE BLOOD COUNT [id number] PLATELET COUNT 179 10e9/L Unknown COMPLETE BLOOD COUNT [id number] Mean Plt Volume 12.2 fL Unknown COMPLETE BLOOD COUNT [id number] Neut Auto 69.2 % 0 Unknown COMPLETE BLOOD COUNT [id number] Lymph Auto 20.7 % 04/22/20 20 Unknown COMPLETE BLOOD COUNT [id number] [place] Auto 8.7 % 0 Unknown COMPLETE BLOOD COUNT [id number] RDW 12.6 % 0 Unknown COMPLETE BLOOD COUNT [id number] Eos Auto 1.1 % 0 Unknown COMPLETE BLOOD COUNT 1137439 Baso Auto 0.3 % 0 Unknown COMPLETE BLOOD COUNT [id number] Neutrophil Abs 6.64 10e9/L Unknown COMPLETE BLOOD COUNT [id number] Lymphocyte Abs 1.99 10e9/L Unknown COMPLETE BLOOD COUNT [id number] Monocyte Abs 0.84 10e9/L 04/03 Unknown COMPLETE BLOOD COUNT [id number] Eosinophil Abs 0.11 10e9/L Unknown COMPLETE BLOOD COUNT [id number] RDW-SD 42.5 fL 0 Unknown COMPLETE BLOOD COUNT [id number] Basophil Abs 0.03 10e9/L 04/03 Unknown Procedures Procedure Codes Date ROUTINE VENIPUNCTURE CPT-4: 68711 04/22/2020 COMPLETE CBC W/AUTO DIFF WBC CPT-4: 59446 04/22/2020 PNEUMOCOCCAL VACC 23 RENITA IM CPT-4: 45967 04/07/2020 IMMUNIZATION ADMIN CPT-4: 59585 04/07/2020 PNEUMOCOCCAL VACC 13 RENITA IM CPT-4: 61505 04/06/2019 IMMUNIZATION ADMIN CPT-4: 86858 04/06/2019 Vital Signs Date Vital 03/08/2021 Blood Pressure 1: 127/82 Code: 8480-6 BMI: 24.1 Code: 54446-6 Heart Rate 1: 70 bpm Height: 5'11" Code: 8302-2 Respiratory Rate: 16 bpm SpO2: 97% Temperature: 36.3 (C) / 97.3 (F) Weight: 173 lbs Code: 08627-2 04/22/2020 Blood Pressure 1: 139/82 Code: 8480-6 Heart Rate 1: 63 bpm SpO2: 99% 04/07/2020 Blood Pressure 1: 140/85 Code: 8480-6 Heart Rate 1: 75 bpm Respiratory Rate: 20 bpm SpO2: 98% Temperature: 36.7 (C) / 98.0 (F) We ight: 179 lbs Code: 45806-5 04/06/2019 Blood Pressure 1: 136/82 Code: 8480-6 Heart Rate 1: 62 bpm SpO2: 96% Temperature: 36.3 (C) / 97.4 (F) Weight: 181 lbs Code: 66731-0 03/31/2018 Blood Pressure 1: 116/64 Code: 8480-6 BMI: 26.0 Code: 32519-1 Heart Rate 1: 62 bpm Height: 5'10" Code: 8302-2 Respiratory Rate: 22 bpm SpO2: 96% Temperature: 36.8 (C) / 98.2 (F) Weight: 181 lbs Code: 98086-0 03/08/2016 Blood Pressure 1: 142/84 Code: 8480-6 BMI: 26.5 Code: 83029-3 Heart Rate 1: 54 bpm Height: 5'10" Code: 8302-2 Respiratory Rate: 22 bpm SpO2: 97% Temperature: 36.7 (C) / 98.1 (F) Weight: 185 lbs Code: 64661-9 04/25/2015 Blood Pressure 1: 128/70 Code: 8480-6 BMI: 26.0 Code: 44816-9 Heart Rate 1: 78 bpm Height: 5'10" Code: 8302-2 Respiratory Rate: 22 bpm Temperat ure: 36.4 (C) / 97.6 (F) Weight: 181 lbs Code: 35811-6 03/25/2014 Blood Pressure 1: 120/78 Code: 8480-6 BMI: 26.1 Code: 22284-4 Heart Rate 1: 64 bpm Height: 5'10" Code: 8302-2 Respiratory Rate: 20 bpm Temperat ure: 36.6 (C) / 97.9 (F) Weight: 182 lbs Code: 67257-7 06/05/2012 Blood Pressure 1: 116/78 Code: 8480-6 BMI: 25.5 Code: 84614-6 Heart Rate 1: 60 bpm Height: 5'10" Code: 8302-2 Respiratory Rate: 20 bpm Temperat ure: 36.9 (C) / 98.4 (F) Weight: 178 lbs Code: 92139-0 05/09/2011 Blood Pressure 1: 120/70 Code: 8480-6 BMI: 25.8 Code: 98179-8 Heart Rate 1: 54 bpm Height: 5'10" Code: 8302-2 Temperature: 36.3 (C) / 97.3 (F) Weight: 180 lbs Code: 61834-4 05/26/2010 Blood Pressure 1: 135/88 Code: 8480-6 Bl ood Pressure 2: 135/80 Code: 8480-6 03/21/2010 Blood Pressure 1: 140/86 Code: 8480-6 He art Rate 1: 60 bpm 03/01/2010 Blood Pressure 1: 144/94 Code: 8480-6 Heart Rate 1: 60 bpm Temperature: 37.1 (C) / 98.8 (F) Weight: 176 lbs Code: 89554-9 Functional Status No Functional Status data Reason [...] head Encounters Encounter Performer Location Codes Date ([id number]) OFFICE/OUTPATIENT VISIT EST Diagnosis: Multiple joint pain[ICD10: M25.50] Diagnosis: Malaise[ICD10: R53.81] Diagnosis: Bitten or stung by nonvenomous insect and other nonvenomous arthropods, initial encounter[ICD10: W57.XXXA] Diagnosis: Tick bite of left lower leg, initial encounter[ICD10: S80.862A] Diagnosis: Fever, unspecified fever cause[ICD10: R50.9] Olivia Myersradhaduane KRIS Mitchell [employer] CPT-4: 15275 03/08/2021 ([id number]) NURSE/OUTPATIENT VISIT EST Diagnosis: Essential (primary) hypertension[ICD10: I10] Kris PONCE [employer] [employer] CPT-4: 77611 04/22/2020 ([id number]) PER PM REEVAL EST PAT 65+ YR Diagnosis: PNEUMOCOCCAL VACCINE[ICD10: Z23] Diagnosis: Encounter for general adult medical examination without abnormal findings[ICD10: Z00.00] Diagnosis: Essential (primary) hypertension[ICD10: I10] Skylar Monzonzohreh PONCE [employer] [employer] CPT-4: 69216 04/07/2020 ([id number]) PER PM REEVAL EST PAT 65+ YR Diagnosis: Encounter for general adult medical examination without abnormal findings[ICD10: Z00.00] Diagnosis: PNEUMOCOCCAL VACCINE[ICD10: Z23] Diagnosis: Essential (primary) hypertension[ICD10: I10] Skylar PONCE S. ORENDER DO [facility] CPT-4: 74565 04/06/2019 ([id number]) PREV VISIT EST AGE 40-64 Diagnosis: Encounter for general adult medical examination without abnormal findings[ICD10: Z00.00] Diagnosis: Essential (primary) hypertension[ICD10: I10] Skylar PONCE S. ORENDER DO [employer] CPT-4: 48943 03/31/2018 ([id number]) PREV VISIT EST AGE 40-64 Diagnosis: Encounter for general adult medical examination without abnormal findings[ICD10: Z00.00] Diagnosis: Essential (primary) hypertension[ICD10: I10] Yara KahnMoris MARINAQUELINE SLarissa ORENDER DO [employer] CPT-4: 38781 03/08/2016 ([id number]) PREV VISIT EST AGE 40-64 Diagnosis: ROUTINE MEDICAL EXAM[ICD9: V70.0] Diagnosis: HYPERTENSION[ICD9: 401.9] Yara KahnMoris MARINAQUELINE S. ORE NDER DO [employer] CPT-4: 46308 04/25/2015 ([id number]) PREV VISIT EST AGE 40-64 Diagnosis: ROUTINE MEDICAL EXAM[ICD9: V70.0] Diagnosis: HYPERTENSION[ICD9: 401.9] Kris PONCE SLarissa ORE NDER DO [employer] CPT-4: 27703 03/25/2014 ([id number]) PREV VISIT EST AGE 40-64 Diagnosis: ROUTINE MEDICAL EXAM[ICD9: V70.0] Diagnosis: HYPERTENSION[ICD9: 401.9] Kris PONCE S. ORE NDER DO [employer] CPT-4: 13313 06/05/2012 PREV VISIT EST AGE 40-64 Diagnosis: ROUTINE MEDICAL EXAM[ICD9: V70.0] Diagnosis: HYPERTENSION[ICD9: 401.9] Kris PONCE SLarissa ORE NDER DO [employer] CPT-4: 60710 05/09/2011 ([id number]) OFFICE/OUTPATIENT VISIT, EST Kris HORTON SLarissa LOO CPT-4: 17770 03/01/2010 Plan of Care Planned Activity Notes Codes Status Date Visit Plan: Will get tick panel, CBC, CM P, CRP, and RF. Take ibuprofen for pain/fever. Will call with results. 03/08/2021 Visit NOS Plan: Plan Notes: Will get tick pa alexander, CBC, CMP,... 03/08/2021 Appointment: Olivia Toure WPtel: [phone] [facility] ACUTE ILLNESS 03/08/2021 Patient Education: Patient Medication Summary Completed 03/08/2021 Appointment: Kris Chang WPtel: [phone] [facility] NURSE SERVICES 04/22/2020 Visit Diagnosis Plan: Essential (primary) hypertension Discussion: rtc 2 weeks for bp check. fasting labs ordered. ICD-9 : 401.9 ICD-10 : I10 04/07/2020 Visit Diagnosis Plan: Encounter for [facility] adult medical examination without abnormal findings [...] Z00.00 04/07/2020 Appointment: Skylar Ruth [address] [facility] Annual Well Visit 04/07/2020 Patient Education: lisinopril- [employer] Coupon [phone] [email or web address] Completed 04/07/2020 Patient Education: High Blood Pressure Co mpleted 04/07/2020 Visit Diagnosis Plan: Encounter for [facility] adult medical examination without abnormal findings Discussion: will obtain recent blood wor k from [facility] and order additional tests as needed. [...] ICD-10 : I10 04/06/2019 Appointment: Skylar Ruth [address] [place] [address] Annual Well Visit 04/06/2019 Patient Education: lisinopril- [employer] Coupon [phone] Completed 04/06/2019 Patient Education: High Blood Pressure Co mpleted 04/06/2019 Visit Diagnosis Plan: Essential (primary) hypertension Discussion: stable. continue current medications. fasting labs to be completed this week. ICD-9 : 401.9 ICD-10 : I10 03/31/2018 Visit Diagnosis Plan: Encounter for [facility] adult medical examination without abnormal findings Discussion: blood work ordered sent to [facility] lab for patient to have [...] : Z00.00 03/31/2018 Appointment: Skylar Ruth [address] [facility] Annual Well Visit 03/31/2018 Patient Education: Patient Medication Summary Completed 03/31/2018 Appointment: Yara Payne WPtel: [address] [place], [place] [phone] FOLLOW UP 03/08/2016 Patient Education: Patient Medication Summary Completed 03/08/2016 Patient Education: [facility] - Saving AutoInj - Lisinopril - 18-64 - Dynamic Portal ID Completed 03/08/2016 Visit Plan: Needs Screening Colonscopy- discussed the risks and refuses to schedule Refill Lisinopril 40 mg po daily Completed PSA, routine labs and clinical prostate exam in January- Dr. Alvarado 04/25/2015 Appointment: Yara Payne WPtel: [address] [place], [place] [phone] 04/22/2015 lm 04/25 Left message-lb Annual Well Visit 5 Patient Education: Patient Medication Summary Completed 04/25/2015 Patient Education: [facility] - Saving AutoInj - Lisinopril - 18-64 - Dynamic Portal ID Completed 04/25/2015 Visit Plan: Cont current meds Check fast ing lab including PSA Needs colonoscopy--pt states he will think about it 03/25/2014 Appointment: Kris Chang WPtel: [address] [place], [place] [phone] 03/24 Annual Well Visit 03/25/2014 Patient Education: Patient Medication Summary Completed 03/25/2014 Visit Plan: Refuses prostate exam and co lonoscopy Continue lisinopril Check fasting lab 06/05/2012 Appointment: Kris Chang WPtel: [address] [place], [place] [phone] 06/04 vm ACUTE ILLNESS 06/05/2012 Patient Education: Patient Medication Summary Completed 06/05/2012 Visit Plan: Proceed with fasting lab Ref uses prostate exam Continue lisinopril at current dose 05/09/2011 Appointment: Kris Chang WPtel: [address] [place], [place] [phone] FOLLOW UP 05/09/2011 Patient Education: Patient Medication Summary Completed 05/09/2011 Appointment: Kris Chang WPtel: [address] [place], [place] [phone] FOLLOW UP 05/08/2011 Appointment: Kris Chang WPtel: [address] [place], [place] [phone] BP CHECK 05/26/2010 Patient Education: Patient Medication Summary Completed 05/26/2010 Appointment: Kris Chang WPtel: [address] [place], [place] [phone] FOLLOW UP 03/21/2010 Patient Education: Patient Medication Summary Completed 03/21/2010 Visit Plan: Check fasting lab and UA Sta rt Lisinopril Pt refuses prostate check and colonoscopy 1mo BP check 03/01/2010 Appointment: Kris Chang WPtel: [address] [place] [address] ACUTE ILLNESS 03/01/2010 Patient Education: Patient Medication [...]
--- OUTSIDE RECORDS SUMMARY | 2021-04-05 13:18 | XMS REPORT | CCD ---
Author Author Nayan Chang D.O. Organization KRIS CHANG DO [facility] Address [address] [place] [phone] Phone Care Team Providers Care Police Liaison Officer Name Role Phone Kris Chang D.O., PP Unavailable CCM Unavailable Summary Purpose Interface Exchange Insurance Providers Payer name Policy type / Coverage type Covered libertarian ID Effective Begin Date Effective End Date ABS FOR [facility] Commercial Insurance [id number] Unknown Family History Family History data not found Social History Social History Element Codes Description Effective Dates Tobacco history SNOMED CT: 950266217 Nonsmoker 05/09/2011 Allergies, Adverse Reactions, Alerts Substance [...] Fill Instructions lisinopril 40 mg tablet RxNorm: 800788 TAKE 1 TABLET BY MOUTH ONCE DAILY Tablet(s) Oral 01/27/2021 04/26/2021 Active lisinopril 40 mg tablet RxNorm: 154288 TAKE 1 TABLET BY MOUTH ONCE DAILY Tablet(s) Oral 04/07/2020 04/07/2020 Inactive lisinopril 40 mg tablet RxNorm: 659659 TAKE 1 TABLET BY MOUTH O NCE DAILY 10/23/2019 04/06/2020 Inactive lisinopril 40 mg tablet RxNorm: 282879 1 Tablet(s) PO QD 04/06/2019 0 10/02/2019 Inactive lisinopril 40 mg tablet RxNorm: 759864 1 Tablet(s) PO QD 10/30/2018 0 10/22/2019 Inactive lisinopril 40 mg tablet RxNorm: 462279 1 Tablet(s) PO QD 03/31/2018 0 09/25/2018 Inactive lisinopril 40 mg tablet RxNorm: 622359 1 Tablet(s) PO QD 03/27/2018 0 03/30/2018 Inactive lisinopril 40 mg tablet RxNorm: 397527 1 Tablet(s) PO QD 04/01/2017 0 03/31/2017 Inactive lisinopril 40 mg tablet RxNorm: 440721 1 Tablet(s) PO QD 04/01/2017 0 03/27/2018 Inactive lisinopril 40 mg tablet RxNorm: 678194 1 Tablet(s) PO QD 03/08/2016 0 04/01/2017 Inactive lisinopril 20 mg tablet RxNorm: 056980 Tablet(s) TAKE O NE TABLET BY MOUTH TWICE DAILY, NEED APPT AND LABS 02/16/2016 03/30/2018 Inactive lisinopril 20 mg tablet RxNorm: 880514 TAKE ONE TABLET BY MOUTH TWICE DAILY, NEED APPT AND LABS 10/17/2015 12/15/2015 Inactive lisinopril 40 mg tablet RxNorm: 192410 1 Tablet(s) PO QD 04/25/2015 0 02/16/2016 Inactive lisinopril 20 mg tablet RxNorm: 974902 1 Tablet(s) PO BID -need appt and labs 03/21/2015 10/17/2015 Inactive [AttnRPh: Saving yvrose ly/adjudicate RxGRP:SG20 RxBIN:[id number] RxPCN:HT ID#:[id number]] lisinopril 20 mg tablet RxNorm: 028636 1 Tablet(s) PO BID 03/29/2014 03/21/2015 Inactive [AttnRPh: Saving apply/adjudicate RxGRP: SG20 RxBIN:[id number] RxPCN:HT ID#:[id number]] lisinopril 20 mg tablet RxNorm: 814668 1 Tablet(s) PO BID 03/09/2014 03/22/2014 Inactive [AttnRPh: Saving apply/adjudicate RxGRP: SG20 RxBIN:[id number] RxPCN:HT ID#:[id number]] lisinopril 20 mg tablet RxNorm: 489264 Tablet(s) PO LEANNA E ONE TABLET BY MOUTH TWICE DAILY 06/05/2013 03/08/2014 Inactive lisinopril 20 mg tablet RxNorm: 784145 1 Tablet(s) PO BID 06/02/2012 05/27/2013 Inactive Due for labs and yearly check-up before further refills lisinopril 20 mg tablet RxNorm: 194338 1 Tablet(s) PO BID 05/09/2011 08/06/2011 Inactive Due for labs and yearly check-up before further refills lisinopril 20 mg Tab RxNorm: 154329 1 Tablet(s) PO BID 04/11/201101/2011 Inactive Due for labs and yearly check-up before further refills lisinopril 20 mg Tab RxNorm: 164284 1 Tablet(s) PO BID Due for yearly check-up in January 2011 01/08/2011 05/09/2011 Inactive Lisinopril 20 mg Tab RxNorm: 620850 1 Tablet(s) PO QD 05/26/201003/2011 Inactive Lisinopril 20 mg Tab RxNorm: 540877 1 Tablet(s) PO QD 05/04/201005/04 Inactive Lisinopril 20 mg Tab RxNorm: 969229 1 Tablet(s) PO QD 03/01/201004/03 Inactive Multivitamin & Mineral Formula Tab RxNorm: 1 Tablet(s) PO QD 03/01 Active Aspirin 81 mg Tab RxNorm: 396668 1 Tablet(s) PO QD 03/01/2010 Active Medication Administered No Medication Administered data Immunizations Vaccine Codes Date Status Influenza CVX: 141 07/19/2020 Pneumococcal CVX: 33 04/07/2020 Complete Influenza HD CVX: 135 10/17/2019 Pneumococcal CVX: 133 04/06/2019 Complete Results Observation Observation Code Item Item Code Result Date S vice Location COMPLETE BLOOD COUNT [id number] WBC 9.6 10e9/L 04/22/20 20 Unknown COMPLETE BLOOD COUNT [id number] RBC 4.64 10e12/L 2019 Unknown COMPLETE BLOOD COUNT [id number] HEMOGLOBIN 15.9 g/dL 04/22/20 20 Unknown COMPLETE BLOOD COUNT [id number] HEMATOCRIT 44.0 % 04/22/20 20 Unknown COMPLETE BLOOD COUNT [id number] MCV 94.8 fL 0 Unknown COMPLETE BLOOD COUNT [id number] MCH 34.3 pg 0 Unknown COMPLETE BLOOD COUNT [id number] MCHC 36.1 g/dL 0 Unknown COMPLETE BLOOD COUNT [id number] PLATELET COUNT 179 10e9/L Unknown COMPLETE BLOOD COUNT 0461209 Mean Plt Volume 12.2 fL Unknown COMPLETE BLOOD COUNT [id number] Neut Auto 69.2 % 0 Unknown COMPLETE BLOOD COUNT [id number] Lymph Auto 20.7 % 04/22/20 20 Unknown COMPLETE BLOOD COUNT [id number] Taylor Auto 8.7 % 0 Unknown COMPLETE BLOOD COUNT 7351406 RDW 12.6 % 0 Unknown COMPLETE BLOOD COUNT [id number] Eos Auto 1.1 % 0 Unknown COMPLETE BLOOD COUNT [id number] Baso Auto 0.3 % 0 Unknown COMPLETE BLOOD COUNT 8617916 Neutrophil Abs 6.64 10e9/L Unknown COMPLETE BLOOD COUNT [id number] Lymphocyte Abs 1.99 10e9/L Unknown COMPLETE BLOOD COUNT [id number] Monocyte Abs 0.84 10e9/L 04/03 Unknown COMPLETE BLOOD COUNT [id number] Eosinophil Abs 0.11 10e9/L Unknown COMPLETE BLOOD COUNT [id number] RDW-SD 42.5 fL 0 Unknown COMPLETE BLOOD COUNT [id number] Basophil Abs 0.03 10e9/L 04/03 Unknown Procedures Procedure Codes Date ROUTINE VENIPUNCTURE CPT-4: 90365 04/22/2020 COMPLETE CBC W/AUTO DIFF WBC CPT-4: 64589 04/22/2020 PNEUMOCOCCAL VACC 23 RENITA IM CPT-4: 15091 04/07/2020 IMMUNIZATION ADMIN CPT-4: 63024 04/07/2020 PNEUMOCOCCAL VACC 13 RENITA IM CPT-4: 98168 04/06/2019 IMMUNIZATION ADMIN CPT-4: 83547 04/06/2019 Vital Signs Date Vital 03/08/2021 Blood Pressure 1: 127/82 Code: 8480-6 BMI: 24.1 Code: 62306-7 Heart Rate 1: 70 bpm Height: 5'11" Code: 8302-2 Respiratory Rate: 16 bpm SpO2: 97% Temperature: 36.3 (C) / 97.3 (F) Weight: 173 lbs Code: 24707-7 04/22/2020 Blood Pressure 1: 139/82 Code: 8480-6 Heart Rate 1: 63 bpm SpO2: 99% 04/07/2020 Blood Pressure 1: 140/85 Code: 8480-6 Heart Rate 1: 75 bpm Respiratory Rate: 20 bpm SpO2: 98% Temperature: 36.7 (C) / 98.0 (F) We ight: 179 lbs Code: 53362-1 04/06/2019 Blood Pressure 1: 136/82 Code: 8480-6 Heart Rate 1: 62 bpm SpO2: 96% Temperature: 36.3 (C) / 97.4 (F) Weight: 181 lbs Code: 50305-3 03/31/2018 Blood Pressure 1: 116/64 Code: 8480-6 BMI: 26.0 Code: 40178-9 Heart Rate 1: 62 bpm Height: 5'10" Code: 8302-2 Respiratory Rate: 22 bpm SpO2: 96% Temperature: 36.8 (C) / 98.2 (F) Weight: 181 lbs Code: 24131-8 03/08/2016 Blood Pressure 1: 142/84 Code: 8480-6 BMI: 26.5 Code: 28064-2 Heart Rate 1: 54 bpm Height: 5'10" Code: 8302-2 Respiratory Rate: 22 bpm SpO2: 97% Temperature: 36.7 (C) / 98.1 (F) Weight: 185 lbs Code: 39520-9 04/25/2015 Blood Pressure 1: 128/70 Code: 8480-6 BMI: 26.0 Code: 07029-9 Heart Rate 1: 78 bpm Height: 5'10" Code: 8302-2 Respiratory Rate: 22 bpm Temperat ure: 36.4 (C) / 97.6 (F) Weight: 181 lbs Code: 69463-3 03/25/2014 Blood Pressure 1: 120/78 Code: 8480-6 BMI: 26.1 Code: 98943-2 Heart Rate 1: 64 bpm Height: 5'10" Code: 8302-2 Respiratory Rate: 20 bpm Temperat ure: 36.6 (C) / 97.9 (F) Weight: 182 lbs Code: 19347-2 06/05/2012 Blood Pressure 1: 116/78 Code: 8480-6 BMI: 25.5 Code: 74788-7 Heart Rate 1: 60 bpm Height: 5'10" Code: 8302-2 Respiratory Rate: 20 bpm Temperat ure: 36.9 (C) / 98.4 (F) Weight: 178 lbs Code: 84914-4 05/09/2011 Blood Pressure 1: 120/70 Code: 8480-6 BMI: 25.8 Code: 35930-7 Heart Rate 1: 54 bpm Height: 5'10" Code: 8302-2 Temperature: 36.3 (C) / 97.3 (F) Weight: 180 lbs Code: 29281-7 05/26/2010 Blood Pressure 1: 135/88 Code: 8480-6 Bl ood Pressure 2: 135/80 Code: 8480-6 03/21/2010 Blood Pressure 1: 140/86 Code: 8480-6 He art Rate 1: 60 bpm 03/01/2010 Blood Pressure 1: 144/94 Code: 8480-6 Heart Rate 1: 60 bpm Temperature: 37.1 (C) / 98.8 (F) Weight: 176 lbs Code: 85829-3 Functional Status No Functional Status data Reason [...] head Encounters Encounter Performer Location Codes Date ([id number]) OFFICE/OUTPATIENT VISIT EST Diagnosis: Multiple joint pain[ICD10: M25.50] Diagnosis: Malaise[ICD10: R53.81] Diagnosis: Bitten or stung by nonvenomous insect and other nonvenomous arthropods, initial encounter[ICD10: W57.XXXA] Diagnosis: Tick bite of left lower leg, initial encounter[ICD10: S80.862A] Diagnosis: Fever, unspecified fever cause[ICD10: R50.9] Olivia Myersradhaduane KRIS [facility] CPT-4: 59643 03/08/2021 ([id number]) NURSE/OUTPATIENT VISIT EST Diagnosis: Essential (primary) hypertension[ICD10: I10] Kris PONCE Comfort LineLarissa [facility] CPT-4: 64715 04/22/2020 ([id number]) PER PM REEVAL EST PAT 65+ YR Diagnosis: PNEUMOCOCCAL VACCINE[ICD10: Z23] Diagnosis: Encounter for general adult medical examination without abnormal findings[ICD10: Z00.00] Diagnosis: Essential (primary) hypertension[ICD10: I10] Skylar Monzonzohreh PONCE Comfort LineLarissa [facility] CPT-4: 33692 04/07/2020 ([id number]) PER PM REEVAL EST PAT 65+ YR Diagnosis: Encounter for general adult medical examination without abnormal findings[ICD10: Z00.00] Diagnosis: PNEUMOCOCCAL VACCINE[ICD10: Z23] Diagnosis: Essential (primary) hypertension[ICD10: I10] Skylar PONCE S. ORENDER DO [facility] CPT-4: 44459 04/06/2019 ([id number]) PREV VISIT EST AGE 40-64 Diagnosis: Encounter for general adult medical examination without abnormal findings[ICD10: Z00.00] Diagnosis: Essential (primary) hypertension[ICD10: I10] Skylar PONCE S. ORENDER DO [employer] CPT-4: 24202 03/31/2018 ([id number]) PREV VISIT EST AGE 40-64 Diagnosis: Encounter for general adult medical examination without abnormal findings[ICD10: Z00.00] Diagnosis: Essential (primary) hypertension[ICD10: I10] Yara KahnMoris MARINAQUELINE SLarissa ORENDER DO [employer] CPT-4: 54744 03/08/2016 ([id number]) PREV VISIT EST AGE 40-64 Diagnosis: ROUTINE MEDICAL EXAM[ICD9: V70.0] Diagnosis: HYPERTENSION[ICD9: 401.9] Yara KahnMoris MARINAQUELINE S. ORE NDER DO [employer] CPT-4: 56208 04/25/2015 ([id number]) PREV VISIT EST AGE 40-64 Diagnosis: ROUTINE MEDICAL EXAM[ICD9: V70.0] Diagnosis: HYPERTENSION[ICD9: 401.9] Kris PONCE SLarissa ORE NDER DO [employer] CPT-4: 07658 03/25/2014 ([id number]) PREV VISIT EST AGE 40-64 Diagnosis: ROUTINE MEDICAL EXAM[ICD9: V70.0] Diagnosis: HYPERTENSION[ICD9: 401.9] Kris PONCE S. ORE NDER DO [employer] CPT-4: 91664 06/05/2012 PREV VISIT EST AGE 40-64 Diagnosis: ROUTINE MEDICAL EXAM[ICD9: V70.0] Diagnosis: HYPERTENSION[ICD9: 401.9] Kris PONCE SLarissa ORE NDER DO [employer] CPT-4: 74648 05/09/2011 ([id number]) OFFICE/OUTPATIENT VISIT, EST Kris HORTON SLarissa LOO CPT-4: 26074 03/01/2010 Plan of Care Planned Activity Notes Codes Status Date Visit Plan: Will get tick panel, CBC, CM P, CRP, and RF. Take ibuprofen for pain/fever. Will call with results. 03/08/2021 Visit NOS Plan: Plan Notes: Will get tick pa alexander, CBC, CMP,... 03/08/2021 Patient Education: Patient Medication Summary Completed 03/08/2021 Appointment: Kris Chang WPtel: [phone] [id number] NURSE SERVICES 04/22/2020 Visit Diagnosis Plan: Essential (primary) hypertension Discussion: rtc 2 weeks for bp check. fasting labs ordered. ICD-9 : 401.9 ICD-10 : I10 04/07/2020 Visit Diagnosis Plan: Encounter for gene [facility] adult medical examination without abnormal findings Discussion: need updated labs. will orde r for him to get done at [facility] tomorrow. sees dr. alvarado for prostate [...] ICD-10 : Z00.00 04/07/2020 Appointment: Skylar Ruth [address] [place], [place] [id number] Annual Well Visit 04/07/2020 Patient Education: lisinopril- [employer] Coupon [phone] [email or web address] Completed 04/07/2020 Patient Education: High Blood Pressure Co mpleted 04/07/2020 Visit Diagnosis Plan: Encounter for gene ral adult medical examination without abnormal findings Discussion: will obtain recent blood wor k from [facility] and order additional tests as needed. [...] ICD-10 : I10 04/06/2019 Appointment: Skylar Ruth [address] [place], [place] [address] Annual Well Visit 04/06/2019 Patient Education: lisinopril- [employer] Coupon [id number] Completed 04/06/2019 Patient Education: High Blood Pressure Co mpleted 04/06/2019 Visit Diagnosis Plan: Essential (primary) hypertension Discussion: stable. continue current medications. fasting labs to be completed this week. ICD-9 : 401.9 ICD-10 : I10 03/31/2018 Visit Diagnosis Plan: Encounter for [facility] adult medical examination without abnormal findings Discussion: blood work ordered sent to [facility] lab for patient to have fasting later [...] ICD-10 : Z00.00 03/31/2018 Appointment: Skylar Ruth [address] [place], [place] [phone] Annual Well Visit 03/31/2018 Patient Education: Patient Medication Summary Completed 03/31/2018 Appointment: Yara Payne WPtel: [phone] [facility] FOLLOW UP 03/08/2016 Patient Education: Patient Medication Summary Completed 03/08/2016 Patient Education: [facility] - Saving [employer] - Lisinopril - 18-64 - Dynamic Portal ID Completed 03/08/2016 Visit Plan: Needs Screening Colonscopy- discussed the risks and refuses to schedule Refill Lisinopril 40 mg po daily Completed PSA, routine labs and clinical prostate exam in January- Dr. Alvarado 04/25/2015 Appointment: Yara Payne WPtel: [address] [place], [place] [phone] 04/22/2015 lm 04/25 Left message-lb Annual Well Visit 5 Patient Education: Patient Medication Summary Completed 04/25/2015 Patient Education: [facility] - Saving AutoInj - Lisinopril - 18-64 - Dynamic Portal ID Completed 04/25/2015 Visit Plan: Cont current meds Check fast ing lab including PSA Needs colonoscopy--pt states he will think about it 03/25/2014 Appointment: Kris Chang WPtel: [address] [place], [place] [phone] 03/24 Annual Well Visit 03/25/2014 Patient Education: Patient Medication Summary Completed 03/25/2014 Visit Plan: Refuses prostate exam and co lonoscopy Continue lisinopril Check fasting lab 06/05/2012 Appointment: Kris Chang WPtel: [address] [place], [place] [phone] 06/04 vm ACUTE ILLNESS 06/05/2012 Patient Education: Patient Medication Summary Completed 06/05/2012 Visit Plan: Proceed with fasting lab Ref uses prostate exam Continue lisinopril at current dose 05/09/2011 Appointment: Kris Chang WPtel: [address] [place], [place] [phone] US FOLLOW UP 05/09/2011 Patient Education: Patient Medication Summary Completed 05/09/2011 Appointment: Kris Chang WPtel: [address] [place], [place] [phone] US FOLLOW UP 05/08/2011 Appointment: Kris Chang WPtel: [address] [place], [place] [phone] US BP CHECK 05/26/2010 Patient Education: Patient Medication Summary Completed 05/26/2010 Appointment: Kris Chang WPtel: [address] [place], [place] [phone] FOLLOW UP 03/21/2010 Patient Education: Patient Medication Summary Completed 03/21/2010 Visit Plan: Check fasting lab and UA Sta rt Lisinopril Pt refuses prostate check and colonoscopy 1mo BP check 03/01/2010 Appointment: Kris Chang WPtel: [phone] [facility] ACUTE ILLNESS 03/01/2010 Patient Education: Patient [...]
== END 2021-04-01 17:56 | disposition left against medical advice (07) ==
LOC: EDUNIT# 14:54 → ER 14:58
DX: H53.121 Transient visual loss, right eye (principal); Z20.822 Contact with and (suspected) exposure to COVID-19
CPT/HCPCS: 36415; 70450; 70496; 70498; 71045; 80053; 82947; 84484; 85025; 85379; 85610; 85730; 93005

== ENCOUNTER → 2021-04-10 | Outpatient (CLI) | payer OTHER ==
[~2021-04-10] MED LIST: GADOBUTROL 10 MMOL/10 ML (GADAVIST) VIAL IV ONE
--- NOTE | 2021-04-10 13:59 | Diagnostic Imaging Report ---
PROCEDURE: MR imaging of the brain without contrast. TECHNIQUE: Multiplanar, multisequence MR imaging of the brain was performed without contrast. INDICATION: Episodic right visual loss on a positional basis. COMPARISON: Comparison limited to CT angiographic study of the head 04/01/2021. FINDINGS: There are no foci of abnormal diffusion restriction. There were no findings of an acute or subacute ischemic infarct. The orbital contents are unremarkable. The paranasal sinuses are nonacute. Mild cerebral cortical atrophy is stable from prior. No focal or generalized cerebral edema. No suspicious white matter disease. No evidence for an elevation to the intracerebral pressures. There was no mass or mass effect. There are no abnormal extra-axial fluid collections, and there are no findings of hemorrhage. IMPRESSION: No findings of acute or subacute ischemia. No hemorrhage, edema, mass, or other significant findings. Dictated by: Dictated on workstation # [id number]
--- NOTE | 2021-04-10 14:04 | Diagnostic Imaging Report ---
PROCEDURE: US carotid duplex, bilateral. TECHNIQUE: Multiple real-time grayscale images were obtained over the carotid arteries in various projections, bilaterally. Additional spectral analysis and color Doppler duplex images were also obtained. INDICATION: Visual changes, TIA. FINDINGS: Grayscale images show minimal intimal thickening in the right internal carotid artery. There is no alteration of waveforms or velocities. Both vertebral arteries are patent with antegrade flow. IMPRESSION: Minimal atherosclerosis. No hemodynamically significant stenosis. Parameters based on the consensus panel Hoang-Scale and Doppler ultrasound criteria published July 2003, Radiology, Volume 229. DOPPLER (peak systolic velocity M/S Right Left CCA 1.0 .95 ICA Proximal .66 .85 ICA Mid .80 .86 ICA Distal .78 .96 RATIO .8 1.0 ECA 1.1 .96 VERT .61 .34 Dictated by: Dictated on workstation # [id number]
== END ==
LOC: CARD 12:00
PROVIDERS: ATTEND Family Medicine
DX: G45.9 Transient cerebral ischemic attack, unspecified (principal)
CPT/HCPCS: 70551; 93306; 93880

== ENCOUNTER → 2021-12-12 | Outpatient (CLI) | payer OTHER ==
--- NOTE | 2021-12-12 19:27 | Diagnostic Imaging Report ---
CLINICAL HISTORY: Bilateral hand pain. COMPARISON: None. TECHNIQUE: 6 views of the bilateral hands. FINDINGS: There is no acute fracture or dislocation of the bilateral hands. Alignment is anatomic. Mild degenerative changes are seen in the hands with marginal osteophytes and joint space narrowing, greatest in the bilateral 1st CMC joints. No focal osseous lesions are seen. The soft tissues of the hands are unremarkable. IMPRESSION: 1. No acute fracture or dislocation in the bilateral hands. 2. 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 Dictated by: Dictated on workstation # [id number]
== END ==
LOC: SDC 10:35
PROVIDERS: ATTEND Internal Medicine Rheumatology
DX: M18.0 Bilateral primary osteoarthritis of first carpometacarpal joints (principal)